=== PATIENT | female | born 1990 | race Caucasian/White ===

== ENCOUNTER 2019-09-22 20:19 | Emergency (ER) | payer SELFPAY ==
[2019-09-22 20:25] VITALS: BP 138/57; PULSE 69; RESP 16; TEMP 37.1; O2SAT 98; BMI 41.1
[2019-09-22 21:13] LABS: Basophils # 0.1 10^3/uL (0.0-0.1); Basophils % 0.4 %; Eosinophils # 0.5 10^3/uL (0.0-0.8); Eosinophils % 4.5 %; Hemoglobin 14.1 g/dL (11.5-15.3); Lymphocytes # 3.1 10^3/uL (0.8-4.8); Lymphocytes % 27.9 %; Mean Corpuscular Hemoglobin 27.3 pg (28.0-34.0); Mean Corpuscular Volume 85.1 fL (81-99); Mean Platelet Volume 10.6 fL (7.4-10.4); Monocytes % 9.2 %; Neutrophils # 6.4 10^3/uL (1.8-7.7); Neutrophils % 57.8 %; Nucleated Red Blood Cells % 0 %; Platelet Count 256 10^3/cmm (130-400); Red Blood Count 5.17 10^6/uL (4.1-5.3); Red Cell Distribution Width 13.7 % (12.1-15.1); White Blood Count 11.1 10^3/uL (4.0-10.0)
[2019-09-22 21:30] LABS: Alanine Aminotransferase 18 U/L (0-33); Albumin Level 4.5 g/dL (3.5-5.2); Alkaline Phosphatase 84 IU/L (35-105); Aspartate Amino Transferase 15 U/L (0-32); Blood Urea Nitrogen 12 mg/dL (6-20); Calcium 9.6 mg/dL (8.5-10.5); Carbon Dioxide 23 mmol/L (22-29); Chloride 103 mmol/L (98-107); Globulin 2.8 g/dL (1.3-4.6); Glucose 93 mg/dL (65-115); Lipase 29 U/L (13-60); Osmolality Calculated 282 mOsm/kg (285-295); Sodium 138 mmol/L (136-145); Total Bilirubin 0.7 mg/dL (0.15-1.2); Total Protein 7.3 g/dL (6.6-8.7)
[2019-09-22 21:41] LABS: Blood Urine 2+ (Negative); Glucose Urine UA Norm (Normal); Ketones Urine Negative (Negative); Protein Urine Neg (Negative); Urine Appearance Cloudy (CLEAR); Urine Color Yellow (Yellow); pH Urine 5 (5-7)
[2019-09-22 21:42] LABS: Add Urine Microscopic? YES; Bilirubin Urine Neg (NEGATIVE); Leukocyte Esterase Urine Trace (Negative); Nitrate Urine Negative (Negative); Urobilinogen Urine 1 mg/dL (Negative)
[2019-09-22 22:05] LABS: Hyaline Casts Urine 0-4
[2019-09-22 22:06] LABS: Bacteria Urine 4+; Mucus Urine 2+; Squamous Epithelial Cell Urine 15-25 (0-5)
[2019-09-22 22:07] LABS: Add Urine Culture? No
--- NOTE | 2019-09-22 22:10 | ED_ITS ---
Entered by Nicky Parr, acting as scribe for Cuco Abbasi DO Sep 22, 2019 20:19 HPI - Nausea/Vomiting/Diarrhea General: Chief complaint: Nausea/Vomiting/Diarrhea Stated complaint: fever/chills/vomiting Time Seen by Provider: 09/22/19 22:04 History of Present Illness: HPI Narrative: 29 yo f came to the er pov for fever, chills, vomiting and lightheadedness. Pt said that she has been lightheaded, vomiting and some blurry vision. started last sunday. Pt said that she has been having some burning with urination. Pt said that the vision issues are her main concern. Pt upon palpation she stated that she had some mild abd pain. MD elicited complaint: nausea, vomiting and abdominal pain (mild) Onset (ago): day(s) (4 days ago) Associated nausea: Yes Associated abdominal pain: Yes (mild) Location of pain: RLQ Pain consistency: intermittent Severity: mild Quality: aching Exacerbating factors: none Relieving factors: none Associated symtoms: Reports cough and nausea; Denies chest pain, dysuria, fatigue or malaise Review of Systems General: Reports: other (negative unless marked ) Const: Denies: fever, chills, body aches, change in appetite, fatigue or malaise ENMT: Denies: throat pain, ear pain, nasal discharge or nasal congestion Card: Denies: chest pain, edema, shortness of breath on exertion or shortness of breath when lying down Resp: Denies: shortness of breath, productive cough or non-productive cough GI: Reports: nausea : Denies: flank pain, difficulty urinating, painful urination, urinary frequency or urinary urgency Skin/Breast: Denies: rash or itching PFSH ED PFSH: Social History Smoking and tobacco status: current every day smoker Physical Exam Const: COMMON NORMALS: average body habitus, oriented x3 and alert GENERAL APPEARANCE: cooperative, comfortable, well kempt and well developed NUTRITIONAL APPEARANCE: obese ORIENTATION/CONSCIOUSNESS: Yes awake, Yes oriented to person and Yes oriented to place HENMT: COMMON NORMALS: normocephalic, head/scalp atraumatic, EAC's normal, TM's normal bilaterally, external nose normal, moist oral mucous membranes and oropharynx normal HEAD & SCALP: normocephalic and atraumatic NOSE: external nose normal EXTERNAL AUDITORY CANAL: EAC's normal TYMPANIC MEMBRANE: TM's normal bilaterally MOUTH: oral and palatal mucosa normal, lip normal and tongue normal THROAT: posterior oropharynx normal and tonsils normal Eye: COMMON NORMALS: PERRL, EOMs intact bilaterally, conjunctivae normal and no scleral icterus CONJUNCTIVA: Yes conjunctivae normal PUPIL: Yes PERRL Neck/C-Spine: COMMON NORMALS: full ROM, no lymphadenopathy, supple, no meningeal signs and thyroid normal THYROID: thyroid normal and asymmetrical Lymph: LYMPHATIC: no lymphadenopathy noted Resp: COMMON NORMALS: normal respiratory effort, no retractions, no use of accessory muscles and clear to auscultation bilaterally AUSCULTATION: clear to auscultation bilaterally Cardio: COMMON NORMALS: regular rate and regular rhythm RATE: regular rate RHYTHM: regular rhythm HEART SOUNDS: no murmurs GI: COMMON NORMALS: normal to inspection, nondistended, normoactive bowel sounds, soft to palpation and no hepatosplenomegaly PALPATION: Yes soft and Yes no hepatosplenomegaly : COMMON NORMALS: Yes no CVA tenderness BLADDER/KIDNEY EXAM: Yes no CVA tenderness Back/Pelvis: COMMON NORMALS: no CVA tenderness LUMBAR SPINE/LOWER BACK: Yes normal to inspection Extremity: COMMON NORMALS: no clubbing, cyanosis or edema, no calf tenderness and no pedal edema Neuro: COMMON NORMALS: oriented x3 SENSORIUM/ORIENTATION: Yes alert, Yes oriented to person and Yes oriented to place MENINGEAL SIGNS: Yes no meningeal signs Psych: APPEARANCE: Yes well kempt Skin: COMMON NORMALS: no rashes or lesions noted and skin turgor normal GENERAL SKIN EXAM: no rashes or lesions noted and turgor normal Course ED course: Patient improved with IV fluids. Ago and discharge home Zofran as needed fluid clear liquid diet for the next 24 hours and advance as tolerated return if his problems Vital Signs: Vital signs: Vital Signs Temperature 98.7 F 09/22/19 20:25 Pulse Rate 84 09/23/19 00:15 Respiratory Rate 20 H 09/23/19 00:15 Blood Pressure 125/71 09/23/19 00:15 Pulse Oximetry 96 09/23/19 00:15 MDM - Nausea/Vomiting/Diarrhea Lab Data: Labs: Lab Results 09/22/19 09/22/19 09/22/19 Range/Units 20:55 20:55 21:02 WBC 11.1 H (4.0-10.0) 10^3/ uL RBC 5.17 (4.1-5.3) 10^6/u L Hgb 14.1 (11.5-15.3) g/dL Hct 44.0 (37.0-47.0) % MCV 85.1 (81-99) fL MCH 27.3 L (28.0-34.0) pg MCHC 32.0 (30.0-36.0) g/dL RDW 13.7 (12.1-15.1) % Plt Count 256 (130-400) 10^3/c mm MPV 10.6 H (7.4-10.4) fL Neut % (Auto) 57.8 % Lymph % (Auto) 27.9 % Caswell % (Auto) 9.2 % Eos % (Auto) 4.5 % Baso % (Auto) 0.4 % Neut # (Auto) 6.4 (1.8-7.7) 10^3/u L Lymph # (Auto) 3.1 (0.8-4.8) 10^3/u L Caswell # (Auto) 1.0 H (0.2-0.9) 10^3/u L Eos # (Auto) 0.5 (0.0-0.8) 10^3/u L Baso # (Auto) 0.1 (0.0-0.1) 10^3/u L Nucleated RBC % (a uto) 0 % Nucleated RBCs # 0.0 /100WBC Sodium 138 (136-145) mmol/L Potassium 4.0 (3.5-5.1) mmol/L Chloride 103 (98-107) mmol/L Carbon Dioxide 23 (22-29) mmol/L Anion Gap 16.0 (5-19) BUN 12 (6-20) mg/dL Creatinine 0.6 (0.5-0.9) mg/dL GFR Calculation 119.0 (90-130) mL/min Glucose 93 (65-115) mg/dL POC Glucose (70-110) mg/dL Calculated Osmolal ity 282 L (285-295) mOsm/k g Calcium 9.6 (8.5-10.5) mg/dL Total Bilirubin 0.7 (0.15-1.2) mg/dL AST 15 (0-32) U/L ALT 18 (0-33) U/L Alkaline Phosphata se 84 (35-105) IU/L Total Protein 7.3 (6.6-8.7) g/dL Albumin 4.5 (3.5-5.2) g/dL Globulin 2.8 (1.3-4.6) g/dL Lipase 29 (13-60) U/L Urine Color Yellow (Yellow) Urine Appearance Cloudy (CLEAR) Urine pH 5 (5-7) Ur Specific Gravit y 1.030 (1.005-1.030) Urine Protein Neg (Negative) Urine Glucose (UA) Norm (Normal) Urine Ketones Negative (Negative) Urine Blood 2+ H (Negative) Urine Nitrate Negative (Negative) Urine Bilirubin Neg (NEGATIVE) Urine Urobilinogen 1 H (Negative) mg/dL Ur Leukocyte Janice ase Trace H (Negative) Urine RBC 5-10 H (0-2) /hpf Urine WBC 5-10 H (0-5) /hpf Ur Squamous Epith Cells 15-25 H (0-5) Calcium Oxalate Cr ystal 10-15 H /hpf Urine Bacteria 4+ H (NONE) Hyaline Casts 0-4 H Urine Mucus 2+ 03/16/20 Range/Units 22:56 WBC (4.0-10.0) 10^3/ uL RBC (4.1-5.3) 10^6/u L Hgb (11.5-15.3) g/dL Hct (37.0-47.0) % MCV (81-99) fL MCH (28.0-34.0) pg MCHC (30.0-36.0) g/dL RDW (12.1-15.1) % Plt Count (130-400) 10^3/c mm MPV (7.4-10.4) fL Neut % (Auto) % Lymph % (Auto) % Caswell % (Auto) % Eos % (Auto) % Baso % (Auto) % Neut # (Auto) (1.8-7.7) 10^3/u L Lymph # (Auto) (0.8-4.8) 10^3/u L Caswell # (Auto) (0.2-0.9) 10^3/u L Eos # (Auto) (0.0-0.8) 10^3/u L Baso # (Auto) (0.0-0.1) 10^3/u L Nucleated RBC % (a uto) % Nucleated RBCs # /100WBC Sodium (136-145) mmol/L Potassium (3.5-5.1) mmol/L Chloride (98-107) mmol/L Carbon Dioxide (22-29) mmol/L Anion Gap (5-19) BUN (6-20) mg/dL Creatinine (0.5-0.9) mg/dL GFR Calculation (90-130) mL/min Glucose (65-115) mg/dL POC Glucose 78 (70-110) mg/dL Calculated Osmolal ity (285-295) mOsm/k g Calcium (8.5-10.5) mg/dL Total Bilirubin (0.15-1.2) mg/dL AST (0-32) U/L ALT (0-33) U/L Alkaline Phosphata se (35-105) IU/L Total Protein (6.6-8.7) g/dL Albumin (3.5-5.2) g/dL Globulin (1.3-4.6) g/dL Lipase (13-60) U/L Urine Color (Yellow) Urine Appearance (CLEAR) Urine pH (5-7) Ur Specific Gravit y (1.005-1.030) Urine Protein (Negative) Urine Glucose (UA) (Normal) Urine Ketones (Negative) Urine Blood (Negative) Urine Nitrate (Negative) Urine Bilirubin (NEGATIVE) Urine Urobilinogen (Negative) mg/dL Ur Leukocyte Janice ase (Negative) Urine RBC (0-2) /hpf Urine WBC (0-5) /hpf Ur Squamous Epith Cells (0-5) Calcium Oxalate Cr ystal /hpf Urine Bacteria (NONE) Hyaline Casts Urine Mucus Discharge Plan Discharge Patient Disposition: Home, Self-Care Clinical Impression: Gastroenteritis Condition: Stable Prescriptions: New Zofran 4 mg tablet 4 mg PO Q6H PRN (Reason: nausea and vomiting) Qty: 20 RF: 0 Discharge Orders: Discharge Order (Routine); Ordered 09/22/19 Ordered By: Cuco Abbasi Referrals: Kimmie Tanner, OUTER DIAMETER TECHNICIAN-C [Primary Care Provider] - Milton Mcintyre MD [Family Provider] - Discharge Diet: Clear Liquid Discharge Activity: Increase activity as tolerated Patient Instructions: Clear Liquid Diet (ED), Gastroenteritis (ED), Acute Nausea and Vomiting (ED) Activity Restrictions/Additional Instructions: Follow-up with your primary care doctor if not resolved in 3 to 4 days. Return to the emergency room if worsens. Discharge Date/Time: 09/23/19 00:15 Coding Level of Care Code ED Leaf Sorter for Chg Fwd Exam Comprehensive The documentation recorded by the Keshav biswas Stephanie Lyn, accurately reflects the service I personally performed and the decisions made by , Cuco Abbasi, Sep 22, 2019 20:19
[2019-09-22] MEDS: ondansetron 2 mg/ML SDV 2 mL 4 MG IVP (22:44)
[2019-09-22] MEDS: sodium chloride 0.9% 1,000 ML 999 ML IV (22:46)
[2019-09-22 23:03] LABS: Glucose Point of Care 78 mg/dL (70-110)
[2019-09-23 00:15] VITALS: BP 125/71; PULSE 84; RESP 20; O2SAT 96
== END 2019-09-23 00:15 | disposition home or self-care (01) ==
PROVIDERS: Emergency Provider Family Medicine; Family Provider Family Medicine; PCP Nurse Practitioner
DX: K52.9 Noninfective gastroenteritis and colitis, unspecified (principal); E66.9 Obesity, unspecified; Z68.41 Body mass index [BMI] 40.0-44.9, adult; F17.200 Nicotine dependence, unspecified, uncomplicated
CPT/HCPCS: 12345; 36415; 36416; 80053; 81001; 82962; 83690; 85025; 96361; 96374; 96375; 99282; 99283; A9270; J2405; J7030

== ENCOUNTER 2019-10-26 10:41 | Emergency (ER) | payer SELFPAY ==
[2019-10-26 10:45] VITALS: BMI 44.4
[2019-10-26 10:49] VITALS: BP 128/81; PULSE 64; RESP 16; TEMP 36.7; O2SAT 97
--- NOTE | 2019-10-26 10:49 | W.ED.PREGNAN ---
HPI - General: Chief complaint: Nausea/Vomiting/Diarrhea Stated complaint: 9 WKS PREG, VOMITING Time Seen by Provider: 10/26/19 10:45 History of Present Illness: HPI Narrative: Patient complains of nausea and vomiting related to her current . Patient believes she is approximately 9 weeks . She is 2 para 1. MD Complaint: other (Nausea and vomiting) Onset (ago): day(s) Pain Consistency: constant Relieving factors: none Exacerbating factors: eating Vaginal discharge: none Vaginal bleeding: none Date of Last Menstrual Period: 08/13/19 OB History - Current : no complications OB History - Previous Pregnancies: no complications care: none Associated symptoms: Reports nausea and vomiting Review of Systems General: Reports: 10 or more systems reviewed and unremarkable except in HPI and below GI: Reports: nausea and vomiting PFSH ED PFSH: Social History Smoking and tobacco status: current every day smoker Female Reproductive History: Date of last menstrual period: 08/13/19 Physical Exam Const: COMMON NORMALS: no apparent distress and oriented x3 HENMT: COMMON NORMALS: normocephalic HEAD & SCALP: normocephalic Neck/C-Spine: COMMON NORMALS: no JVD Resp: COMMON NORMALS: normal respiratory effort and clear to auscultation bilaterally AUSCULTATION: clear to auscultation bilaterally Cardio: COMMON NORMALS: no JVD, regular rate and regular rhythm RATE: regular rate RHYTHM: regular rhythm GI: COMMON NORMALS: normal to inspection, nondistended, normoactive bowel sounds Neuro: COMMON NORMALS: oriented x3 Skin: COMMON NORMALS: no rashes or lesions noted, no wounds, skin turgor normal, no jaundice and no petechiae GENERAL SKIN EXAM: no rashes or lesions noted and turgor normal Course Vital Signs: Vital signs: Vital Signs Temperature 98.0 F 10/26/19 10:49 Pulse Rate 64 10/26/19 10:49 Respiratory Rate 16 10/26/19 10:49 Blood Pressure 128/81 10/26/19 10:49 Pulse Oximetry 97 10/26/19 10:49 Discharge Plan Discharge Prescriptions: No Action Zofran 4 mg tablet 4 mg PO Q6H PRN (Reason: nausea and vomiting) Qty: 20 RF: 0 Coding Level of Care Code ED Marketing Communications Manager for Mo Mota
--- NOTE | 2019-10-26 10:50 | USR_ITS ---
PROCEDURE INFORMATION: Exam: US First Trimester, Transabdominal and US , Transvaginal Exam date and time: 10/26/2019 12:19 PM Age: 29 years old Clinical indication: Lmp or gestational age (in weeks): Unknown; Other: Nausea and vomiting; ; Additional info: Nausea/vomiting TECHNIQUE: Imaging protocol: Real-time transabdominal obstetrical ultrasound of the maternal pelvis and a first trimester , less than 14 weeks 0 days, with image documentation. Transvaginal imaging was used for better evaluation of the fetus and adnexa. COMPARISON: [facility] OB > 14 weeks 03/09/2016 8:18 AM FINDINGS: GESTATION: Gestation: Intrauterine gestational sac identified, better assessed by transvaginal imaging. 4.1 mm yolk sac by transvaginal imaging. Embryo identified by transvaginal imaging. Heart rate: Possible embryonic cardiac activity, rate not assessed. Placenta: Unremarkable. No subchorionic bleed. Amniotic fluid: Amniotic is normal for gestational age. BIOMETRY: Estimated gestational age: [place]-rump length 6 weeks 2 days. [place]-Rump length: [place]-rump length 5.6 mm, 6 weeks 2 days. Estimated due date: LULU 06/16/2020. MATERNAL: Uterus: Uterus 9.8 x 5.4 x 6.8 cm transabdominally. Cervix: Unremarkable. Right adnexa: Right ovary 1.8 x 1.8 x 2.0 cm transabdominally. 9.4 mm right ovarian corpus luteum. Right ovary not identified by transvaginal imaging. Left adnexa: Left ovary 2.3 x 2.5 x 2.3 cm transabdominally, 2.1 x 2.0 x 2.3 cm transvaginally. Normal ovarian arterial and venous blood flow. Intraperitoneal: No intraperitoneal free fluid. US/US OB <=14 wk fetus w transvag IMPRESSION: Single intrauterine , questionable cardiac activity. Follow-up in 1 week recommended to assess viability.
[2019-10-26] MEDS: sodium chloride 0.9% 1,000 ML 999 ML IV (11:03)
[2019-10-26 11:10] LABS: Basophils % 0.3 %; Eosinophils # 0.1 10^3/uL (0.0-0.8); Eosinophils % 0.9 %; Hematocrit 45.8 % (37.0-47.0); Hemoglobin 14.7 g/dL (11.5-15.3); Lymphocytes # 1.9 10^3/uL (0.8-4.8); Lymphocytes % 17.2 %; Mean Corpuscular HGB Conc 32.1 g/dL (30.0-36.0); Mean Corpuscular Hemoglobin 26.8 pg (28.0-34.0); Mean Corpuscular Volume 83.4 fL (81-99); Mean Platelet Volume 10.6 fL (7.4-10.4); Monocytes # 0.6 10^3/uL (0.2-0.9); Monocytes % 5.7 %; Neutrophils # 8.1 10^3/uL (1.8-7.7); Neutrophils % 75.5 %; Nucleated Red Blood Cells % 0 %; Platelet Count 247 10^3/cmm (130-400); Red Blood Count 5.49 10^6/uL (4.1-5.3); Red Cell Distribution Width 13.9 % (12.1-15.1); White Blood Count 10.8 10^3/uL (4.0-10.0)
--- NOTE | 2019-10-26 11:20 | PC.NURSE ---
Pt up to BR with clean catch kit with instructions.
[2019-10-26 11:22] LABS: Lactate (Lactic Acid level) 0.9 mmol/L (0.5-2.2)
[2019-10-26 11:23] LABS: Alanine Aminotransferase 31 U/L (0-33); Albumin Level 4.5 g/dL (3.5-5.2); Alkaline Phosphatase 74 IU/L (35-105); Anion Gap 16.9 (5-19); Aspartate Amino Transferase 17 U/L (0-32); Blood Urea Nitrogen 7 mg/dL (6-20); Calcium 9.7 mg/dL (8.5-10.5); Carbon Dioxide 21 mmol/L (22-29); Chloride 100 mmol/L (98-107); Globulin 3.2 g/dL (1.3-4.6); Glomerular Filtration Rate 146.9 mL/min (90-130); Glucose 96 mg/dL (65-115); Osmolality Calculated 274 mOsm/kg (285-295); Potassium 3.9 mmol/L (3.5-5.1); Sodium 134 mmol/L (136-145); Total Bilirubin 0.7 mg/dL (0.15-1.2); Total Protein 7.7 g/dL (6.6-8.7)
--- NOTE | 2019-10-26 11:44 | PC.NURSE ---
US tech at bedside
[2019-10-26 12:19] LABS: Blood Urine 2+ (Negative); Glucose Urine UA Norm (Normal); Ketones Urine 3+ (Negative); Protein Urine Trace (Negative); Urine Appearance Hazy (CLEAR); pH Urine 5 (5-7)
[2019-10-26 12:20] LABS: Add Urine Microscopic? YES; Amorphous Sediment Urine 1+; Bacteria Urine 2+; Bilirubin Urine 1+ (NEGATIVE); Leukocyte Esterase Urine 2+ (Negative); Nitrate Urine Negative (Negative); RBC Urine RARE /hpf (0-2); Urine Color Dark Yellow (Yellow); Urobilinogen Urine 4 mg/dL (Negative); WBC Urine 15-25 /hpf (0-5)
[2019-10-26 12:21] LABS: Add Urine Culture? No
== END 2019-10-26 12:24 | disposition home or self-care (01) ==
PROVIDERS: Emergency Provider Family Medicine; Family Provider Family Medicine; PCP Nurse Practitioner
DX: O21.9 Vomiting of pregnancy, unspecified (principal); Z3A.01 Less than 8 weeks gestation of pregnancy
CPT/HCPCS: 12345; 36415; 76801; 76817; 80053; 81001; 83605; 84702; 85025; 86900; 96360; 99283; J7030

== ENCOUNTER 2019-11-03 18:37 | Emergency (ER) | payer MEDICAID, SELFPAY ==
[2019-11-03 18:42] VITALS: BP 117/96; PULSE 88; RESP 18; TEMP 36.9; O2SAT 99; BMI 46.4
--- NOTE | 2019-11-03 18:58 | ED_ITS ---
HPI - Nausea/Vomiting/Diarrhea General: Chief complaint: Nausea/Vomiting/Diarrhea Stated complaint: n/v 8 weeks preg Time Seen by Provider: 11/03/19 18:44 History of Present Illness: HPI Narrative: Patient says she is 8-9 weeks and she has had nausea and vomiting for the last few weeks. Has seen her OB provider who placed her on Phenergan and it does not seem to be working and she was seen in the ER the other day and placed on Zofran received IV fluids she said does not work either denies any other problems MD elicited complaint: nausea and vomiting Pertinent past history: other () Onset (ago): week(s) Description of vomiting: food contents Associated nausea: Yes Associated abdominal pain: No Exacerbating factors: eating Relieving factors: none Associated symtoms: Reports no associated symptoms and nausea; Denies anxiety, change in vision, chest pain or headache(s) Review of Systems Const: Denies: fever, chills or body aches Eyes: Denies: change in vision or blurry vision ENMT: Denies: throat pain or nasal congestion Card: Denies: chest pain or shortness of breath on exertion Resp: Denies: shortness of breath, productive cough or non-productive cough GI: Reports: nausea and vomiting Musc: Denies: extremity pain Skin/Breast: Denies: rash Neuro: Denies: headache Psych: Denies: anxiety or depression Adrian/Lymph: Denies: easy bruising PFSH ED PFSH: Social History Smoking and tobacco status: never smoked Female Reproductive History: Date of last menstrual period: 08/13/19 Physical Exam Const: COMMON NORMALS: no apparent distress, average body habitus and oriented x3 HENMT: COMMON NORMALS: normocephalic HEAD & SCALP: normal to inspection and normocephalic FACE & SINUS: normal facial exam Eye: COMMON NORMALS: conjunctivae normal GENERAL EYE: normal appearance of both eyes CONJUNCTIVA: Yes conjunctivae normal Neck/C-Spine: COMMON NORMALS: no JVD Chest: COMMONS NORMALS: inspection of chest normal Resp: COMMON NORMALS: normal respiratory effort and clear to auscultation bilaterally AUSCULTATION: clear to auscultation bilaterally Cardio: COMMON NORMALS: no JVD, regular rate and regular rhythm RATE: regular rate RHYTHM: regular rhythm GI: COMMON NORMALS: normal to inspection, nondistended, normoactive bowel sounds Extremity: COMMON NORMALS: normal to inspection and full ROM Neuro: COMMON NORMALS: oriented x3 Course Vital Signs: Vital signs: Vital Signs Temperature 98.4 F 11/03/19 18:42 Pulse Rate 88 11/03/19 18:42 Respiratory Rate 18 11/03/19 18:42 Blood Pressure 117/96 11/03/19 18:42 Pulse Oximetry 99 11/03/19 18:42 Discharge Plan Discharge Prescriptions: No Action Dramamine 50 mg Tablet 50 mg PO Q8H RF: 0 promethazine 25 mg tablet 12.5 mg PO Q6H PRN (Reason: nausea and vomiting) Qty: 14 RF: 0 Coding Level of Care Code ED Bench Lathe Operator for Mo Mtoa
[2019-11-03] MEDS: sodium chloride 0.9% 1,000 ML 999 ML IV (19:21)
[2019-11-03] MEDS: metoclopramide 5 mg/mL SDV 2 mL 10 MG IVP (19:24)
[2019-11-03] MEDS: diphenhydrAMINE 50 mg/mL SDV 1mL 25 MG IVP (19:26)
[2019-11-03 19:36] LABS: Basophils # 0.1 10^3/uL (0.0-0.1); Basophils % 0.4 %; Eosinophils # 0.1 10^3/uL (0.0-0.8); Eosinophils % 0.7 %; Hematocrit 44.1 % (37.0-47.0); Lymphocytes # 2.1 10^3/uL (0.8-4.8); Lymphocytes % 16.8 %; Mean Corpuscular HGB Conc 31.7 g/dL (30.0-36.0); Mean Corpuscular Hemoglobin 26.6 pg (28.0-34.0); Mean Corpuscular Volume 83.8 fL (81-99); Mean Platelet Volume 11.3 fL (7.4-10.4); Monocytes # 0.8 10^3/uL (0.2-0.9); Monocytes % 6.3 %; Neutrophils # 9.2 10^3/uL (1.8-7.7); Neutrophils % 75.5 %; Nucleated Red Blood Cells % 0 %; Platelet Count 228 10^3/cmm (130-400); Red Blood Count 5.26 10^6/uL (4.1-5.3); Red Cell Distribution Width 13.7 % (12.1-15.1); White Blood Count 12.2 10^3/uL (4.0-10.0)
[2019-11-03 19:53] LABS: Blood Urea Nitrogen 7 mg/dL (6-20); Calcium 9.9 mg/dL (8.5-10.5); Carbon Dioxide 23 mmol/L (22-29); Chloride 102 mmol/L (98-107); Creatinine Clr Calc Pharmacy 167.8006; Glucose 90 mg/dL (65-115); Osmolality Calculated 277 mOsm/kg (285-295); Sodium 136 mmol/L (136-145)
[2019-11-03 20:23] VITALS: BP 121/74; PULSE 66; RESP 17; O2SAT 99
[2019-11-03 20:43] LABS: Bilirubin Urine 1+ (NEGATIVE); Blood Urine Trace (Negative); Glucose Urine UA Norm (Normal); Ketones Urine Negative (Negative); Leukocyte Esterase Urine 2+ (Negative); Nitrate Urine Negative (Negative); Protein Urine Trace (Negative); Specific Gravity, Urine 1.025 (1.005-1.030); Urine Appearance Hazy (CLEAR); Urine Color Amber (Yellow); Urobilinogen Urine 4 mg/dL (Negative); pH Urine 5 (5-7)
[2019-11-03 20:44] LABS: Add Urine Culture? Yes; Add Urine Microscopic? YES; Bacteria Urine 4+; Squamous Epithelial Cell Urine 55-80 (0-5); WBC Urine 25-40 /hpf (0-5)
== END 2019-11-03 20:23 | disposition home or self-care (01) ==
PROVIDERS: Emergency Provider Nurse Practitioner Family; Family Provider Family Medicine; PCP Nurse Practitioner
DX: O36.5910 Maternal care for other known or suspected poor fetal growth, first trimester, not applicable or unspecified (principal); R11.2 Nausea with vomiting, unspecified; Z3A.08 8 weeks gestation of pregnancy
CPT/HCPCS: 12345; 80048; 81001; 85025; 87086; 96360; 96361; 96374; 96375; 99283; 99284; J1200; J2765; J7030

== ENCOUNTER 2019-12-20 10:28 | Emergency (ER) | payer MEDICAID, SELFPAY ==
[2019-12-20 10:33] VITALS: BP 144/65; PULSE 77; RESP 18; TEMP 36.8; O2SAT 97; BMI 41.9
--- NOTE | 2019-12-20 10:43 | W.ED.ABDPA2 ---
HPI - Abdominal Pain General: Chief Complaint: Abdominal Pain Stated Complaint: R LEG/LOW ABD PAIN Time Seen by Provider: 12/20/19 10:33 History of Present Illness: HPI narrative: 29-year-old female comes in complaining of the right lower quadrant pain she is 14 weeks gestation she is G3, P1 SAB [address] Mcintyre. Pain began around 3 AM this morning radiates from her right side down into the suprapubic and groin area. She vomited once last night. Early in she had a lot of hyperemesis up to about 8 weeks use of metoclopramide for that it seems to have resolved. She denies any fever no other sick contacts at home she denies dysuria urgency or frequency no vaginal bleeding or discharge. MD elicited complaint: abdominal pain Pertinent past history: none Onset (ago): hour(s) Pain Consistency: intermittent Location: RLQ Severity: moderate Quality: cramping Radiation: suprapubic Exacerbating factors: eating and movement Relieving factors: rest (Remaining very still) Associated Symptoms: Reports anorexia, GI cramping, nausea and poor appetite; Denies coffee ground emesis, diarrhea, dyspepsia, dysuria, fever(s), hematochezia, hematuria, hematemesis, loose stools, melena and vomiting Related Data: Date of Last Menstrual Period: 08/13/19 Review of Systems Const: Denies: fever(s) ENMT: Denies: throat pain, ear or mastoid pain, nasal discharge or nasal congestion Card: Denies: chest pain, edema, dyspnea on exertion or orthopnea Resp: Denies: dyspnea, productive cough or non-productive cough GI: Reports: nausea and GI cramping; Denies: vomiting, hematemesis, coffee ground emesis, diarrhea, hematochezia or melena : Denies: dysuria or hematuria Skin/Breast: Denies: rash or pruritus PFSH ED PFSH: Medical History Endometriosis Surgical History H/O hand surgery Hx of cholecystectomy Social History Smoking and tobacco status: never smoked Female Reproductive History: Date of last menstrual period: 08/13/19 Physical Exam Const: COMMON NORMALS: no acute distress GENERAL APPEARANCE: cooperative and comfortable ORIENTATION/CONSCIOUSNESS: Yes awake, Yes oriented to person, Yes oriented to place and Yes oriented to time HENMT: COMMON NORMALS: normocephalic, atraumatic, hearing grossly normal bilaterally, external ears normal, EAC's normal, TM's normal bilaterally, Normal nasal mucous membranes and turbinates present, moist oral mucous membranes and oropharynx normal HEAD & SCALP: normocephalic and atraumatic NOSE: Normal nasal mucous membranes and turbinates present EXTERNAL EAR: Yes external ears normal EXTERNAL AUDITORY CANAL: EAC's normal TYMPANIC MEMBRANE: TM's normal bilaterally Eye: COMMON NORMALS: Equal, round and reactive pupils present, EOMs intact bilaterally, conjunctivae normal and no scleral icterus CONJUNCTIVA: Yes conjunctivae normal PUPIL: Yes Equal, round and reactive pupils present Neck/C-Spine: COMMON NORMALS: full ROM, no lymphadenopathy and supple Lymph: LYMPHATIC: no lymphadenopathy noted and no lymphedema noted Resp: COMMON NORMALS: normal respiratory effort, No retractions, No use of accessory muscles and clear to auscultation bilaterally AUSCULTATION: clear to auscultation bilaterally Cardio: COMMON NORMALS: regular rate, regular rhythm and No murmurs present (Cardio) RATE: regular rate RHYTHM: regular rhythm GI: COMMON NORMALS: Soft to palpation and No hepatosplenomegaly present AUSCULTATION: Yes normoactive bowel sounds PALPATION: Yes Soft to palpation, Yes Tenderness to palpation present (GI) (Mild rebound, positive Rovsing's) Details: RLQ, No Guarding due to palpation present (GI) and Yes No hepatosplenomegaly present Extremity: COMMON NORMALS: normal to inspection, capillary refill normal, no clubbing, cyanosis or edema, no calf tenderness and no pedal edema Neuro: SENSORIUM/ORIENTATION: Yes oriented to person, Yes oriented to place and Yes oriented to time Skin: COMMON NORMALS: no rashes or lesions noted GENERAL SKIN EXAM: no rashes or lesions noted Course Vital Signs: Vital signs: Vital Signs Temperature 98.2 F 12/20/19 10:33 Pulse Rate 96 12/20/19 15:48 Respiratory Rate 16 12/20/19 15:48 Blood Pressure 145/85 12/20/19 15:48 Pulse Oximetry 97 12/20/19 15:48 MDM - Abdominal Pain MDM Narrative: Medical decision making narrative: After discussion with the patient as well as her attending we did go ahead and do a CT of the abdomen to rule out concern for appendicitis. At the time of the exam she was exquisitely tender at McBurney's point with a very slightly elevated white count. Patient was quite concerned and he could not confidently rule it out without the CT we discussed the risks and benefits she decided to go ahead. CT ultimately did not show an acute appendicitis and she was discharged home follow-up with primary care doctor return if his problems. Lab Data: Labs: Lab Results 12/20/19 12/20/19 12/20/19 Range/Units 10:50 10:50 10:50 WBC 10.8 H (4.0-10.0) 10^3/ uL RBC 4.64 (4.1-5.3) 10^6/u L Hgb 12.3 (11.5-15.3) g/dL Hct 38.5 (37.0-47.0) % MCV 83.0 (81-99) fL MCH 26.5 L (28.0-34.0) pg MCHC 31.9 (30.0-36.0) g/dL RDW 13.9 (12.1-15.1) % Plt Count 210 (130-400) 10^3/c mm MPV 10.9 H (7.4-10.4) fL Neut % (Auto) 77.0 % Lymph % (Auto) 15.1 % [place] % (Auto) 6.2 % Eos % (Auto) 1.1 % Baso % (Auto) 0.3 % Neut # (Auto) 8.3 H (1.8-7.7) 10^3/u L Lymph # (Auto) 1.6 (0.8-4.8) 10^3/u L [place] # (Auto) 0.7 (0.2-0.9) 10^3/u L Eos # (Auto) 0.1 (0.0-0.8) 10^3/u L Baso # (Auto) 0.0 (0.0-0.1) 10^3/u L Nucleated RBC % (a uto) 0 % Nucleated RBCs # 0.0 /100WBC Sodium 134 L (136-145) mmol/L Potassium 3.7 (3.5-5.1) mmol/L Chloride 104 (98-107) mmol/L Carbon Dioxide 19 L (22-29) mmol/L Anion Gap 14.7 (5-19) BUN 5 L (6-20) mg/dL Creatinine 0.4 L (0.5-0.9) mg/dL GFR Calculation 190.1 H (90-130) mL/min Glucose 107 (65-115) mg/dL Calculated Osmolal ity 274 L (285-295) mOsm/k g Lactate 1.7 (0.5-2.2) mmol/L Calcium 9.3 (8.5-10.5) mg/dL Total Bilirubin 0.2 (0.15-1.2) mg/dL AST 12 (0-32) U/L ALT 10 (0-33) U/L Alkaline Phosphata se 69 (35-105) IU/L Total Protein 6.2 L (6.6-8.7) g/dL Albumin 3.7 (3.5-5.2) g/dL Globulin 2.5 (1.3-4.6) g/dL Lipase 22 (13-60) U/L Ser , Dipti i-Qnt mIU/mL Urine Color (Yellow) Urine Appearance (CLEAR) Urine pH (5-7) Ur Specific Gravit y (1.005-1.030) Urine Protein (Negative) Urine Glucose (UA) (Normal) Urine Ketones (Negative) Urine Blood (Negative) Urine Nitrate (Negative) Urine Bilirubin (NEGATIVE) Urine Urobilinogen (Negative) mg/dL Ur Leukocyte Janice ase (Negative) 12/20/19 12/20/19 Range/Units 10:50 11:15 WBC (4.0-10.0) 10^3/ uL RBC (4.1-5.3) 10^6/u L Hgb (11.5-15.3) g/dL Hct (37.0-47.0) % MCV (81-99) fL MCH (28.0-34.0) pg MCHC (30.0-36.0) g/dL RDW (12.1-15.1) % Plt Count (130-400) 10^3/c mm MPV (7.4-10.4) fL Neut % (Auto) % Lymph % (Auto) % [place] % (Auto) % Eos % (Auto) % Baso % (Auto) % Neut # (Auto) (1.8-7.7) 10^3/u L Lymph # (Auto) (0.8-4.8) 10^3/u L [place] # (Auto) (0.2-0.9) 10^3/u L Eos # (Auto) (0.0-0.8) 10^3/u L Baso # (Auto) (0.0-0.1) 10^3/u L Nucleated RBC % (a uto) % Nucleated RBCs # /100WBC Sodium (136-145) mmol/L Potassium (3.5-5.1) mmol/L Chloride (98-107) mmol/L Carbon Dioxide (22-29) mmol/L Anion Gap (5-19) BUN (6-20) mg/dL Creatinine (0.5-0.9) mg/dL GFR Calculation (90-130) mL/min Glucose (65-115) mg/dL Calculated Osmolal ity (285-295) mOsm/k g Lactate (0.5-2.2) mmol/L Calcium (8.5-10.5) mg/dL Total Bilirubin (0.15-1.2) mg/dL AST (0-32) U/L ALT (0-33) U/L Alkaline Phosphata se (35-105) IU/L Total Protein (6.6-8.7) g/dL Albumin (3.5-5.2) g/dL Globulin (1.3-4.6) g/dL Lipase (13-60) U/L Ser , Dipti i-Qnt 24878.00 mIU/mL Urine Color Straw (Yellow) Urine Appearance Clear (CLEAR) Urine pH 6.5 (5-7) Ur Specific Gravit y 1.010 (1.005-1.030) Urine Protein Neg (Negative) Urine Glucose (UA) Norm (Normal) Urine Ketones Negative (Negative) Urine Blood Neg (Negative) Urine Nitrate Negative (Negative) Urine Bilirubin Neg (NEGATIVE) Urine Urobilinogen Norm (Negative) mg/dL Ur Leukocyte Janice ase Negative (Negative) Discharge Plan Discharge Patient Disposition: Home, Self-Care Clinical Impression: Abdominal pain, Condition: Stable Prescriptions: No Action dimenhydrinate [Dramamine] 50 mg Tablet 50 mg PO Q8H RF: 0 Discharge Orders: Discharge Order (Routine); Ordered 12/20/19 Ordered By: Cuco Abbasi Referrals: Miltno Mcintyre MD [Family Provider] - Discharge Diet: Clear Liquid Discharge Activity: Increase activity as tolerated Patient Instructions: Abdominal Pain (ED) Activity Restrictions/Additional Instructions: Follow-up with your primary care doctor next week. If you have increasing discomfort or pain return to emergency room for reevaluation. Discharge Date/Time: 12/20/19 15:48 Coding Level of Care Code ED Food Operations Manager for Chg Fwd Exam Comprehensive
[2019-12-20 10:58] LABS: Basophils % 0.3 %; Eosinophils # 0.1 10^3/uL (0.0-0.8); Eosinophils % 1.1 %; Hematocrit 38.5 % (37.0-47.0); Hemoglobin 12.3 g/dL (11.5-15.3); Lymphocytes # 1.6 10^3/uL (0.8-4.8); Lymphocytes % 15.1 %; Mean Corpuscular HGB Conc 31.9 g/dL (30.0-36.0); Mean Corpuscular Hemoglobin 26.5 pg (28.0-34.0); Mean Platelet Volume 10.9 fL (7.4-10.4); Monocytes # 0.7 10^3/uL (0.2-0.9); Monocytes % 6.2 %; Neutrophils # 8.3 10^3/uL (1.8-7.7); Nucleated Red Blood Cells % 0 %; Platelet Count 210 10^3/cmm (130-400); Red Blood Count 4.64 10^6/uL (4.1-5.3); Red Cell Distribution Width 13.9 % (12.1-15.1); White Blood Count 10.8 10^3/uL (4.0-10.0)
--- NOTE | 2019-12-20 11:13 | USR_ITS ---
PROCEDURE INFORMATION: Exam: US First Trimester, Transabdominal and US Duplex Artery or Vein, Ovaries, Limited Exam date and time: 12/20/2019 12:04 PM Age: 29 years old Clinical indication: Pain; Other: Right lower quadrant; Additional info: Rlq pain TECHNIQUE: Imaging protocol: Real-time transabdominal obstetrical ultrasound of the maternal pelvis and a first trimester , less than 14 weeks 0 days, with image documentation. Real-time duplex ultrasound scan of the arterial or venous flow of the ovaries with B-mode, color Doppler flow and spectral waveform analysis, limited Duplex. COMPARISON: No relevant prior studies available. FINDINGS: The uterus measures 18 x 8.7 x 10.8 cm. There is a single intrauterine gestation. The embryonic heart rate was measured at 147 beats per minute. The mean sac diameter and crown-rump length were not measured on this examination. Both maternal ovaries are identified and demonstrate blood flow on Doppler interrogation. The right ovary measures 2.7 x 2.4 x 1.8 cm and the left ovary measures 2.8 x 2.2 x 2.5 cm. There is no adnexal mass. The appendix is not identified with certainty. No free fluid is seen in the pelvis. US/US pelvic complete* [id number] IMPRESSION: 1. Single viable intrauterine gestation, as above. Recommend continued clinical and ultrasound surveillance, as clinically indicated. 2. Appendix not identified with certainty. No free fluid.
[2019-12-20 11:16] LABS: Lactate (Lactic Acid level) 1.7 mmol/L (0.5-2.2)
[2019-12-20 11:17] LABS: Alanine Aminotransferase 10 U/L (0-33); Albumin Level 3.7 g/dL (3.5-5.2); Alkaline Phosphatase 69 IU/L (35-105); Anion Gap 14.7 (5-19); Aspartate Amino Transferase 12 U/L (0-32); Blood Urea Nitrogen 5 mg/dL (6-20); Calcium 9.3 mg/dL (8.5-10.5); Carbon Dioxide 19 mmol/L (22-29); Chloride 104 mmol/L (98-107); Globulin 2.5 g/dL (1.3-4.6); Glomerular Filtration Rate 190.1 mL/min (90-130); Glucose 107 mg/dL (65-115); Lipase 22 U/L (13-60); Osmolality Calculated 274 mOsm/kg (285-295); Potassium 3.7 mmol/L (3.5-5.1); Sodium 134 mmol/L (136-145); Total Bilirubin 0.2 mg/dL (0.15-1.2); Total Protein 6.2 g/dL (6.6-8.7)
[2019-12-20] MEDS: ondansetron 2 mg/ML SDV 2 mL 4 MG IVP (11:33)
[2019-12-20 11:41] LABS: Add Urine Microscopic? NO
[2019-12-20 11:43] LABS: Bilirubin Urine Neg (NEGATIVE); Blood Urine Neg (Negative); Glucose Urine UA Norm (Normal); Ketones Urine Negative (Negative); Leukocyte Esterase Urine Negative (Negative); Nitrate Urine Negative (Negative); Protein Urine Neg (Negative); Urine Appearance Clear (CLEAR); Urine Color Straw (Yellow); Urobilinogen Urine Norm (Negative); pH Urine 6.5 (5-7)
--- NOTE | 2019-12-20 13:19 | CTR_ITS ---
PROCEDURE INFORMATION: Exam: CT Abdomen And Pelvis With Contrast Exam date and time: 12/20/2019 2:19 PM Age: 29 years old Clinical indication: Abdominal pain; Localized; Right lower quadrant (rlq); Prior surgery; Surgery date: 6+ months; Surgery type: Gb; Patient HX: PT is 14 weeks C/O sudden onset rlq pain into R leg; Additional info: Abd pain TECHNIQUE: Imaging protocol: Computed tomography of the abdomen and pelvis with intravenous contrast. Axial, coronal and sagittal reformatted images were created and reviewed. Radiation optimization: All CT scans at this facility use at least one of these dose optimization techniques: automated exposure control; mA and/or kV adjustment per patient size (includes targeted exams where dose is matched to clinical indication); or iterative reconstruction. Contrast material: OMNI 300; Contrast volume: 95 ml; Contrast route: 20G; COMPARISON: US pelvic complete* [id number] 12/20/2019 11:41 AM RADIATION DOSE METRICS: Total DLP: 966.76 mGy-cm FINDINGS: Liver: Unremarkable. Gallbladder and bile ducts: Status post cholecystectomy. Mild central biliary ductal dilatation, likely postsurgical. Pancreas: Unremarkable. Spleen: Unremarkable. Adrenals: Unremarkable. Kidneys and ureters: No mass. No radiodense calculi. No hydronephrosis. Stomach and bowel: No bowel wall thickening. No obstruction. No pneumatosis. Appendix: Normal. Intraperitoneal space: No free fluid. No organized fluid collection. No free air. Vasculature: Unremarkable. No aneurysm. Lymph nodes: No pathologically enlarged lymph nodes. Bladder: Unremarkable. Reproductive: Gravid uterus. Bones/joints: No acute osseous abnormality. Mild degenerative changes. Soft tissues: Small, fat containing umbilical hernia. CT/CT abdomen pelvis w con* [id number]: 1[address] No CT evidence of acute appendicitis. 2. Additional findings, as above. Radiation Dose CTDIVOL = (mGy): DLP = 966.76 (mGy-cm)
[2019-12-20 13:30] VITALS: RESP 15
[2019-12-20] MEDS: morphine 4 mg/mL SDV 1 mL 2 MG IVP ×2 (13:30→14:47)
[2019-12-20 13:31] VITALS: PULSE 75; RESP 15; O2SAT 98
[2019-12-20 14:13] VITALS: RESP 20; O2SAT 98
[2019-12-20] MEDS: morphine 4 mg/mL SDV 1 mL IVP (14:13)
[2019-12-20 14:47] VITALS: RESP 16
[2019-12-20] MEDS: iohexol 300 mg/mL 100 mL Btl IV (15:22)
[2019-12-20 15:48] VITALS: BP 145/85; PULSE 96; RESP 16; O2SAT 97
== END 2019-12-20 15:48 | disposition home or self-care (01) ==
PROVIDERS: Emergency Provider Family Medicine; Family Provider Family Medicine; PCP Nurse Practitioner
DX: O26.892 Other specified pregnancy related conditions, second trimester (principal); R10.9 Unspecified abdominal pain; Z3A.14 14 weeks gestation of pregnancy
CPT/HCPCS: 12345; 36415; 74177; 76830; 76856; 80053; 81003; 83605; 83690; 84702; 85025; 96374; 96375; 96376; 99282; 99283; J2270; J2405; Q9967

== ENCOUNTER 2020-01-05 20:24 | Emergency (ER) | payer MEDICAID, SELFPAY ==
[2020-01-05 20:30] VITALS: BP 120/83; PULSE 100; RESP 20; TEMP 36.9; O2SAT 98; BMI 44.6
--- NOTE | 2020-01-05 20:47 | ED_ITS ---
HPI - Abdominal Pain General: Chief Complaint: Abdominal Pain Stated Complaint: 16 WEEKS PREG; PRESSURE/CONTRACTIONS Time Seen by Provider: 01/05/20 20:36 Source: patient Mode of arrival: ambulatory Limitations: no limitations History of Present Illness: HPI narrative: 29-year-old female who is currently 15 weeks states she has had abdominal cramping over the last day. States that it is lower in nature and feels like her uterus is cramping. States pain is currently a 2 out of 10. Denies any worsening or improving factors. She denies any vaginal bleeding or gush of fluid patient seen here few weeks ago for abdominal pain had a CT to rule out appendicitis that was normal. States she has had nausea with this and had nausea and vomiting on the way he re. MD elicited complaint: abdominal pain Pertinent past history: none Associated Symptoms: Reports nausea; Denies chills, dysuria and fever(s) Related Data: Date of Last Menstrual Period: 08/13/19 Review of Systems Const: Denies: fever(s), chills, body aches or change in appetite Eyes: Denies: blurry vision or eye discomfort ENMT: Denies: throat pain or dental pain Card: Denies: chest pain Resp: Denies: dyspnea GI: Reports: abdominal pain and nausea : Denies: dysuria Musc: Denies: neck pain or back pain Skin/Breast: Denies: rash Neuro: Denies: headache(s) Psych: Denies: depression Adrian/Lymph: Denies: easy bruising All/Imm: Denies: urticaria PFSH ED PFSH: Medical History Endometriosis Surgical History H/O hand surgery Hx of cholecystectomy Social History Smoking and tobacco status: never smoked Female Reproductive History: Date of last menstrual period: 08/13/19 Physical Exam Const: COMMON NORMALS: no acute distress, patient oriented x3 and healthy appearing HENMT: COMMON NORMALS: normocephalic and atraumatic HEAD & SCALP: nor mocephalic and atraumatic Eye: COMMON NORMALS: Equal, round and reactive pupils present and EOMs intact bilaterally PUPIL: Yes Equal, round and reactive pupils present Neck/C-Spine: COMMON NORMALS: full ROM and supple Chest: COMMONS NORMALS: normal inspection of the chest and normal palpation of entire chest wall Resp: COMMON NORMALS: normal respiratory effort, No retractions, No use of accessory muscles and clear to auscultation bilaterally AUSCULTATION: clear to auscultation bilaterally Cardio: COMMON NORMALS: regular rate, regular rhythm and No murmurs present (Cardio) RATE: regular rate RHYTHM: regular rhythm GI: COMMON NORMALS: Normal to inspection, nondistended, normoactive bowel sounds present, Soft to palpation, non-tender and no masses PALPATION: Yes Soft to palpation OTHER: gravid uterus Extremity: COMMON NORMALS: normal to inspection and full ROM Neuro: COMMON NORMALS: patient oriented x3, moves all extremities and no focal motor deficits Psych: COMMON NORMALS: mental status grossly normal, Normal thought process present and cooperative THOUGHT PROCESS: Normal thought process present Skin: COMMON NORMALS: no rashes or lesions noted and no wounds GENERAL SKIN EXAM: no rashes or lesions noted Course Vital Signs: Vital signs: Vital Signs Temperature 98.5 F 01/05/20 20:30 Pulse Rate 77 01/05/20 21:04 Respiratory Rate 18 01/05/20 21:04 Blood Pressure 134/90 01/05/20 21:04 Pulse Oximetry 98 01/05/20 21:04 MDM - Abdominal Pain MDM Narrative: Medical decision making narrative: Patient presents here with abdominal pain and likely from her urinary tract infection. Patient is well-appearing here and bedside ultrasound showed IUP consistent with dates with heart rate of 150. Patient has no bleeding. Patient is stable for discharge and return if worsening. She is to follow-up with her OB in 2 to 4 days. Lab Data: Labs: Lab Results 01/05/20 Range/Units 20:35 Urine Color Straw (Yellow) Urine Appearance Hazy A (CLEAR) Urine pH 6 (5-7) Ur Specific Gravit y 1.005 (1.005-1.030) Urine Protein Neg (Negative) Urine Glucose (UA) Norm (Normal) Urine Ketones Negative (Negative) Urine Blood Neg (Negative) Urine Nitrate Negative (Negative) Urine Bilirubin Neg (NEGATIVE) Urine Urobilinogen Norm (Negative) mg/dL Ur Leukocyte Janice ase 2+ H (Negative) Urine RBC 0-4 H (0-2) /hpf Urine WBC 5-10 H (0-5) /hpf Ur Squamous Epith Cells 10-15 H (0-5) Amorphous Sediment Not Reportable Urine Bacteria 3+ H (NONE) Discharge Plan Discharge Patient Disposition: Home, Self-Care Clinical Impression: Abdominal pain affecting Acute cystitis Qualifiers: Hematuria presence: without hematuria Qualified Code(s): N30.00 - Acute cystitis without hematuria Condition: Stable Prescriptions: New Keflex 500 mg capsule 500 mg PO Q6H 7 Days Qty: 28 RF: 0 Reglan 10 mg tablet 10 mg PO Q6H PRN (Reason: nausea and vomiting) Qty: 20 RF: 0 No Action ondansetron HCl 4 mg tablet 4 mg PO PRN PRN (Reason: pain/nausea/vomiting) RF: 0 Discharge Orders: Discharge Order (Routine); Ordered 01/05/20 Ordered By: Campos Connelly Referrals: Kimmie Tanner, VICE PRESIDENT EDUC[facility] [Primary Care Provider] - Discharge Diet: Advance as tolerated Discharge Activity: Resume usual activity Patient Instructions: Abdominal Pain (ED) Coding Level of Care Code ED Technical Communicator for Chg Fwd Exam Comprehensive
[2020-01-05 21:04] VITALS: BP 134/90; PULSE 77; RESP 18; O2SAT 98
[2020-01-05] MEDS: sodium chloride 0.9% 1,000 ML 999 ML IV (21:11)
[2020-01-05] MEDS: metoclopramide 5 mg/mL SDV 2 mL 10 MG IVP (21:12)
[2020-01-05] MEDS: diphenhydrAMINE 50 mg/mL SDV 1mL IVP (21:16)
[2020-01-05 21:37] LABS: Add Urine Microscopic? YES; Bilirubin Urine Neg (NEGATIVE); Blood Urine Neg (Negative); Glucose Urine UA Norm (Normal); Ketones Urine Negative (Negative); Leukocyte Esterase Urine 2+ (Negative); Nitrate Urine Negative (Negative); Protein Urine Neg (Negative); Specific Gravity, Urine 1.005 (1.005-1.030); Urine Appearance Hazy (CLEAR); Urine Color Straw (Yellow); Urobilinogen Urine Norm (Negative); pH Urine 6 (5-7)
[2020-01-05 21:44] LABS: Add Urine Culture? No; Bacteria Urine 3+; RBC Urine 0-4 /hpf (0-2)
[2020-01-05] MEDS: cefTRIAXone 1,000 MG in sodium chloride 0.9% (plus) 50 ML 100 MG IV (21:52)
[2020-01-05 21:57] VITALS: BP 134/90; PULSE 68; RESP 18; O2SAT 95
[2020-01-05 22:47] VITALS: PULSE 86; RESP 18; O2SAT 98
== END 2020-01-05 22:48 | disposition home or self-care (01) ==
PROVIDERS: Nurse Practitioner Family; Emergency Provider Emergency Medicine; PCP Nurse Practitioner
DX: O23.12 Infections of bladder in pregnancy, second trimester (principal); Z3A.15 15 weeks gestation of pregnancy
CPT/HCPCS: 12345; 81001; 96360; 96361; 96365; 96375; 99283; J0696; J1200; J2765; J7030

== ENCOUNTER 2020-02-01 21:45 | Outpatient (CLI) | payer MEDICAID, SELFPAY ==
[2020-02-01 21:59] VITALS: BP 0/0
[2020-02-01 22:01] VITALS: BP 121/62; PULSE 78
[2020-02-01 22:16] VITALS: BMI 43.4
[2020-02-01 22:35] LABS: Hematocrit 36.9 % (37.0-47.0); Mean Corpuscular HGB Conc 32.5 g/dL (30.0-36.0); Mean Corpuscular Hemoglobin 27.1 pg (28.0-34.0); Mean Corpuscular Volume 83.5 fL (81-99); Mean Platelet Volume 10.6 fL (7.4-10.4); Platelet Count 217 10^3/cmm (130-400); Red Blood Count 4.42 10^6/uL (4.1-5.3); Red Cell Distribution Width 14.3 % (12.1-15.1); White Blood Count 13.5 10^3/uL (4.0-10.0)
[2020-02-01 22:50] LABS: Add Urine Culture? Yes; Add Urine Microscopic? YES; Bacteria Urine 2+; Bilirubin Urine Neg (NEGATIVE); Blood Urine Neg (Negative); Glucose Urine UA Norm (Normal); Ketones Urine Negative (Negative); Leukocyte Esterase Urine 2+ (Negative); Nitrate Urine Negative (Negative); Protein Urine Neg (Negative); RBC Urine 0-4 /hpf (0-2); Squamous Epithelial Cell Urine 0-4 (0-5); Urine Appearance Cloudy (CLEAR); Urine Color Yellow (Yellow); Urobilinogen Urine Norm (Negative); WBC Urine 25-40 /hpf (0-5); pH Urine 6 (5-7)
[2020-02-01 22:57] LABS: Absolute Eosinophils 0.1 10^3/cmm (0.0-0.7); Absolute Neutrophil 10.4 10^3/cmm (1.4-6.5); Band Neutrophils Absolute 0.4 10^3/cmm (0.0-1.2); Eosinophils 1 %; Lymphocytes 20 %; Monocytes Absolute 0.3 10^3/cmm (0.1-0.6); Platelet Estimate Normal (Normal); Segmented Neutrophils 74 %; Total Cells Counted 100 (0-100)
--- NOTE | 2020-02-01 22:58 | PC.NURSE ---
Pt. shown to triage room and provided with gown.
[2020-02-01 23:22] VITALS: BP 112/48; PULSE 70
[2020-02-01 23:36] VITALS: BP 131/61; PULSE 65
[2020-02-01] MEDS: acetaminophen 500 mg Tablet 1000 MG PO (23:38)
[2020-02-01] MEDS: cefTRIAXone 1,000 mg SDV 1000 MG IM (23:39)
[2020-02-01 23:55] VITALS: BP 131/61; PULSE 65; RESP 18; TEMP 36.9
== END 2020-02-01 23:55 | disposition home or self-care (01) ==
LOC: OPOB 21:53 → OBGYN 21:53
PROVIDERS: PCP Nurse Practitioner; Visit Provider Family Medicine
DX: O26.899 Other specified pregnancy related conditions, unspecified trimester (principal); Z3A.00 Weeks of gestation of pregnancy not specified; R52 Pain, unspecified
CPT/HCPCS: 36415; 81001; 81003; 85007; 85027; 87086; 96372; 99211; J0696

== ENCOUNTER 2020-03-08 19:55 | Outpatient (CLI) | payer MEDICAID, SELFPAY | END 2020-03-08 22:25 | disposition home or self-care (01) | LOC: OPOB 20:08 → OBGYN 20:08 | PROVIDERS: PCP Nurse Practitioner; Visit Provider Family Medicine | DX: O26.899 Other specified pregnancy related conditions, unspecified trimester (principal); Z3A.00 Weeks of gestation of pregnancy not specified; R10.9 Unspecified abdominal pain | CPT/HCPCS: 59025; 99211 ==

== ENCOUNTER 2020-03-11 15:50 | Outpatient (CLI) | payer MEDICAID, SELFPAY ==
[2020-03-11] VITALS (8 sets, daily range): BP systolic 92–103; BP diastolic 46–61; PULSE 66–83; RESP 18; TEMP 37.3; BMI 44.0
[2020-03-11 17:15] LABS: Add Urine Microscopic? YES; Bilirubin Urine Neg (NEGATIVE); Blood Urine Neg (Negative); Glucose Urine UA Norm (Normal); Ketones Urine Negative (Negative); Leukocyte Esterase Urine 2+ (Negative); Nitrate Urine Negative (Negative); Protein Urine Neg (Negative); Urine Appearance Cloudy (CLEAR); Urine Color Yellow (Yellow); Urobilinogen Urine Neg (Negative); pH Urine 6 (5-7)
[2020-03-11 17:16] LABS: Add Urine Culture? No; Bacteria Urine 2+; RBC Urine 0-4 /hpf (0-2); Squamous Epithelial Cell Urine 40-55 (0-5); WBC Urine 40-55 /hpf (0-5)
--- NOTE | 2020-03-11 17:31 | PC.NURSE ---
Prescription for Keflex 500mg po TID called into [facility] in [place].
== END 2020-03-11 17:35 | disposition home or self-care (01) ==
LOC: OPOB 15:51 → OBGYN 15:52
PROVIDERS: PCP Nurse Practitioner; Visit Provider Family Medicine
DX: O26.899 Other specified pregnancy related conditions, unspecified trimester (principal); Z3A.00 Weeks of gestation of pregnancy not specified
CPT/HCPCS: 81001; 83986; 87086; 99211

== ENCOUNTER 2020-04-17 21:00 | Outpatient (CLI) | payer MEDICAID, SELFPAY ==
[2020-04-17 21:23] VITALS: BP 103/50; PULSE 97; RESP 16; TEMP 37.1
[2020-04-17 21:34] VITALS: BMI 45.1
[2020-04-17 22:09] VITALS: BP 103/50; PULSE 97; RESP 16; TEMP 37.1
--- NOTE | 2020-04-17 23:37 | PC.NURSE ---
Addendum entered by Clementina Mata RN 04/17/20 23:39: Conversation with patient was at 2140 Original Note: Asked patient if she felt like she was still leaking and patient denies any further leaking and states she did not wear a pad to the hospital and did not have any leaking on clothing. Patient then states that I could have peed on myself, when I wiped it was yellow.
== END 2020-04-17 22:12 | disposition home or self-care (01) ==
LOC: OPOB 21:13 → OBGYN 21:14
PROVIDERS: PCP Nurse Practitioner; Visit Provider Family Medicine
DX: O26.899 Other specified pregnancy related conditions, unspecified trimester (principal); Z3A.00 Weeks of gestation of pregnancy not specified; N89.8 Other specified noninflammatory disorders of vagina
CPT/HCPCS: 99211

== ENCOUNTER 2020-04-18 23:26 | Outpatient (CLI) | payer MEDICAID, SELFPAY ==
[2020-04-18 23:41] VITALS: BP 119/62; PULSE 80; RESP 16; TEMP 36.6
[2020-04-19 00:08] VITALS: BMI 45.0
[2020-04-19 00:11] VITALS: BP 119/62; PULSE 80; RESP 16; TEMP 36.6
== END 2020-04-19 00:22 | disposition home or self-care (01) ==
LOC: OPOB 23:27 → OBGYN 23:27
PROVIDERS: PCP Nurse Practitioner; Visit Provider Family Medicine
DX: O16.9 Unspecified maternal hypertension, unspecified trimester (principal); Z3A.00 Weeks of gestation of pregnancy not specified
CPT/HCPCS: 59025; 99211

== ENCOUNTER 2020-05-04 19:20 | Outpatient (CLI) | payer MEDICAID, SELFPAY ==
[2020-05-04 19:28] VITALS: RESP 17; TEMP 36.8
[2020-05-04 19:32] VITALS: BMI 45.6
[2020-05-04 19:45] VITALS: BP 124/57; PULSE 85; RESP 17; TEMP 36.9; O2SAT 97
[2020-05-04] MEDS: acetaminophen 500 mg Tablet 1000 MG PO (20:08)
[2020-05-04 20:55] LABS: Add Urine Microscopic? YES; Bilirubin Urine Neg (Negative); Blood Urine Neg (Negative); Glucose Urine UA Norm (Normal); Ketones Urine Negative (Negative); Leukocyte Esterase Urine 2+ (Negative); Nitrate Urine Negative (Negative); Protein Urine Neg (Negative); Urine Appearance Hazy (CLEAR); Urine Color Straw (Yellow); Urobilinogen Urine Norm (Negative); pH Urine 6 (5-7)
[2020-05-04 20:56] LABS: Add Urine Culture? No; Bacteria Urine 3+ /hpf; RBC Urine 0-4 /hpf (0-2); Squamous Epithelial Cell Urine 15-25 /hpf (0-5)
[2020-05-04 21:09] VITALS: BP 109/50; PULSE 82; RESP 17; TEMP 36.8; O2SAT 98
== END 2020-05-04 21:45 | disposition home or self-care (01) ==
LOC: OPOB 19:21 → OBGYN 21:15
PROVIDERS: PCP Nurse Practitioner; Visit Provider Family Medicine
DX: O26.899 Other specified pregnancy related conditions, unspecified trimester (principal); Z3A.00 Weeks of gestation of pregnancy not specified; R10.2 Pelvic and perineal pain
CPT/HCPCS: 59025; 81001; 99211

== ENCOUNTER 2020-05-21 13:40 | Outpatient (CLI) | payer MEDICAID, SELFPAY ==
[2020-05-21 14:00] VITALS: RESP 18; TEMP 37.1
[2020-05-21 14:02] VITALS: BMI 45.8
[2020-05-21 14:20] VITALS: BP 124/74; PULSE 76
== END 2020-05-21 14:30 | disposition home or self-care (01) ==
LOC: OPOB 13:53 → OBGYN 13:57
PROVIDERS: PCP Nurse Practitioner; Visit Provider Family Medicine
DX: O62.9 Abnormality of forces of labor, unspecified (principal); Z3A.00 Weeks of gestation of pregnancy not specified
CPT/HCPCS: 99211

== ENCOUNTER 2020-05-25 21:03 | Outpatient (CLI) | payer MEDICAID, SELFPAY ==
[2020-05-25 21:13] VITALS: BMI 46.7
[2020-05-25 21:14] VITALS: RESP 17; TEMP 36.8
[2020-05-25 21:17] VITALS: BP 75/68; PULSE 80
[2020-05-25 21:19] VITALS: BP 137/71; PULSE 82
[2020-05-25 22:09] LABS: Nitrazine Paper, PH Negative
[2020-05-25 22:20] VITALS: BP 137/71; PULSE 82; RESP 17; TEMP 36.8
== END 2020-05-25 22:00 | disposition home or self-care (01) ==
LOC: OPOB 21:09 → OBGYN 21:09
PROVIDERS: PCP Nurse Practitioner; Visit Provider Family Medicine
DX: O42.90 Premature rupture of membranes, unspecified as to length of time between rupture and onset of labor, unspecified weeks of gestation (principal); Z3A.00 Weeks of gestation of pregnancy not specified
CPT/HCPCS: 59025; 83986; 99211

== ENCOUNTER 2020-05-30 09:32 | Outpatient (CLI) | payer MEDICAID, SELFPAY ==
[2020-05-30] VITALS (12 sets, daily range): BP systolic 0–145; BP diastolic 0–77; PULSE 68–97; RESP 20; TEMP 36.7; BMI 47.0
[2020-05-30] MEDS: acetaminophen 500 mg Tablet 1000 MG PO (10:36)
[2020-05-30 11:54] LABS: Bilirubin Urine Neg (Negative); Blood Urine Neg (Negative); Glucose Urine UA Norm (Normal); Ketones Urine Negative (Negative); Leukocyte Esterase Urine 2+ (Negative); Nitrate Urine Negative (Negative); Protein Urine Neg (Negative); Specific Gravity, Urine 1.005 (1.005-1.030); Urine Appearance Hazy (CLEAR); Urine Color Yellow (Yellow); Urobilinogen Urine Norm (Negative); pH Urine 7 (5-7)
[2020-05-30 11:57] LABS: Bacteria Urine 2+ /hpf; Mucus Urine 2+ /hpf; Squamous Epithelial Cell Urine 25-40 /hpf (0-5)
[2020-05-30 11:58] LABS: Add Urine Culture? No; WBC Urine 25-40 /hpf (0-5)
== END 2020-05-30 12:20 | disposition home or self-care (01) ==
LOC: OPOB 09:38 → OBGYN 09:39
PROVIDERS: PCP Nurse Practitioner; Visit Provider Family Medicine
DX: O26.899 Other specified pregnancy related conditions, unspecified trimester (principal); M54.9 Dorsalgia, unspecified; R10.2 Pelvic and perineal pain
CPT/HCPCS: 59025; 81001; 99211

== ENCOUNTER 2020-05-31 16:35 | Outpatient (CLI) | payer MEDICAID, SELFPAY ==
[2020-05-31] VITALS (7 sets, daily range): BP systolic 0–154; BP diastolic 0–84; PULSE 75–82; RESP 18; TEMP 36.4; BMI 47.1
--- NOTE | 2020-05-31 17:33 | USR_ITS ---
PROCEDURE INFORMATION: Exam: US Biophysical Profile Without Non-Stress Test Exam date and time: 05/31/2020 6:28 PM Age: 29 years old Clinical indication: Other: deceleration with slow return; ; Patient HX: 37w 5 days. Edc 06-16-2020 TECHNIQUE: Imaging protocol: US biophysical profile without non-stress testing. COMPARISON: US OB >= 14 weeks fetus [id number] 01/26/2020 11:20 AM FINDINGS: BIOPHYSICAL PROFILE: Breathin/2 Gross body movements: 2/2 tone: 2/2 Qualitative amniotic fluid: 2/2 Biophysical Profile Score: 8/8 US/US OB BPP wo NST [id number] IMPRESSION: Biophysical profile score is 8 out of 8.
== END 2020-05-31 18:30 | disposition home or self-care (01) ==
LOC: OBGYN 18:32 → OPOB 06-01 08:44 → OBGYN 06-01 08:45
PROVIDERS: PCP Family Medicine; Visit Provider Family Medicine
DX: O36.8330 Maternal care for abnormalities of the fetal heart rate or rhythm, third trimester, not applicable or unspecified (principal); Z3A.37 37 weeks gestation of pregnancy
CPT/HCPCS: 59025; 76819; 99211; G0378; G0379

== ENCOUNTER 2020-06-05 15:22 | Observation (INO) | payer MEDICAID, SELFPAY ==
[2020-06-05 15:27] VITALS: BMI 46.7
[2020-06-05 15:40] VITALS: BP 144/72; PULSE 86
[2020-06-05 15:55] VITALS: BP 0/0
[2020-06-05 15:56] VITALS: BP 126/66; PULSE 78
[2020-06-05 16:10] VITALS: BP 128/68; PULSE 80
[2020-06-05 16:19] VITALS: BP 128/68; PULSE 80
[2020-06-05 16:58] LABS: Nitrazine Paper, PH Negative
== END 2020-06-05 16:21 | disposition home or self-care (01) ==
PROVIDERS: Admitting Provider Family Medicine; PCP Family Medicine; Visit Provider Family Medicine
DX: O26.899 Other specified pregnancy related conditions, unspecified trimester (principal); Z3A.00 Weeks of gestation of pregnancy not specified; N89.8 Other specified noninflammatory disorders of vagina
CPT/HCPCS: 83986; 99211; G0378; G0379

== ENCOUNTER 2020-06-08 21:00 | Inpatient (IN) | payer MEDICAID, SELFPAY ==
[2020-06-08] VITALS (18 sets, daily range): BP systolic 0–152; BP diastolic 0–89; PULSE 69–80; RESP 16; TEMP 36.9; BMI 47.4
--- NOTE | 2020-06-08 18:45 | PC.NURSE ---
Patient reported feeling leaking since 1839, when getting out of the car to come to the department.
[2020-06-08 22:24] LABS: Basophils % 0.3 %; Eosinophils # 0.2 10^3/uL (0.0-0.8); Eosinophils % 1.2 %; Hematocrit 41.2 % (37.0-47.0); Hemoglobin 13.2 g/dL (11.5-15.3); Lymphocytes # 2.6 10^3/uL (0.8-4.8); Lymphocytes % 17.1 %; Mean Corpuscular Hemoglobin 26.5 pg (28.0-34.0); Mean Corpuscular Volume 82.6 fL (81-99); Mean Platelet Volume 11.6 fL (7.4-10.4); Monocytes # 0.9 10^3/uL (0.2-0.9); Monocytes % 5.8 %; Neutrophils # 11.65 10^3/uL (1.8-7.7); Neutrophils % 75.2 %; Nucleated Red Blood Cells % 0 %; Platelet Count 236 10^3/cmm (130-400); Red Blood Count 4.99 10^6/uL (4.1-5.3); White Blood Count 15.5 10^3/uL (4.0-10.0)
[2020-06-08] MEDS: ondansetron 2 mg/ML SDV 2 mL 4 MG IVP (22:57)
[2020-06-08] MEDS: alum-mag-hydroxide-sime 30 mL UDC PO (22:57)
[2020-06-08] MEDS: lactated ringers 1,000 ML 999 ML IV (23:44)
[2020-06-09] VITALS (79 sets, daily range): BP systolic 0–145; BP diastolic 0–110; PULSE 52–86; RESP 16–20; TEMP 36.1–36.9; O2SAT 72–100
[2020-06-09] MEDS: dextrose 5%-lactated ringers 1,000 ML 125 ML IV (00:49)
--- NOTE | 2020-06-09 00:50 | ANES.PREANE2 ---
Pre-Anesthetic Assessment Pre-Anesthetic Assessment: Height/Weight: Height 1.68 m Weight 133.356 kg Temp Pulse Resp BP 98.4 F 57 L 16 119/66 06/08/20 22:15 06/09/20 00:46 06/08/20 22:15 06/09/20 00:46 Preop Diagnosis: Labor pain Proposed Procedure: Epidural Familial anesthetic complications: Dural Puncture headache after last epidural Was Beta Javid taken within 24 hours: N/A Social: Social History: No alcohol and No tobacco Exam: Pre-Anes Outpt Exam: alert, oriented x 3, clear to auscultation bilaterally and regular rate & rhythm Airway: Submandibular: WNL Cervical ROM: WNL MP: 2 Dentition: Full Pulmonary: Pulmonary: None reported CV/HEM: CV/HEM: None reported : : None reported Hepatic: Hepatic: None reported GI: GI: GERD (with ) Metabolic: Metabolic: Morbid obesity Musc/skel: Musc/skel: None reported Neuropsych: Neuropsych: Anxiety and Depression Anesthetic Plan: ASA status: 2 Anesthesia: Eval. for regional block and Regional (specify below) Risk of > 500 ml blood loss (7ml/kg in children): No Meds/Allergies Current Medications: Current Medications Generic Name Dose Route Start Last Admin Trade Name Freq PRN Reason Stop Dose Admin Al Hydrox/Mg [place] x/Simethicone 30 ml 06/08/20 22:15 06/08/20 22:57 [id number]-[id number] de-Alexandra 30 Ml Udc PO 30 ml Q4H PRN Administration INDIGESTION Lactated Ringer's 1,000 mls @ 999 m ls/hr 06/08/20 22:15 06/09/20 00:49 Lactated Ringers IV Infused .Q1H1M PRN Infusion See label comment s Dextrose/Lactated Ringer's 1,000 mls @ 125 m ls/hr 06/08/20 22:15 06/09/20 00:49 Dextrose 5%-Lact ated Ringers IV 125 mls/hr .Q8H PRN Administration LABOR INDUCTION Ondansetron HCl 4 mg 06/08/20 22:15 06/08/20 22:57 Ondansetron 2 Mg /Ml Sdv 2 Ml IVP 4 mg Q4H PRN Administration NAUSEA AND VOMITI NG PFSH Anesthesia PFSH: Medical History (Updated 01/13/20 @ 00:00 by ) Endometriosis Surgical History H/O hand surgery Hx of cholecystectomy Social History Smoking and tobacco status: never smoked Female Reproductive History: Date of last menstrual period: 08/13/19 : 3 Data Anesthesia CBC & Chem 7: 06/08/20 21:25 Other Labs: Laboratory Results - last 48 hr 06/08/20 21:25 WBC 15.5 H RBC 4.99 Hgb 13.2 Hct 41.2 MCV 82.6 MCH 26.5 L MCHC 32.0 RDW 14.0 Plt Count 236 MPV 11.6 H Neut % (Auto) 75.2 Lymph % (Auto) 17.1 [place] % (Auto) 5.8 Eos % (Auto) 1.2 Baso % (Auto) 0.3 Neut # (Auto) 11.65 H Lymph # (Auto) 2.6 [place] # (Auto) 0.9 Eos # (Auto) 0.2 Baso # (Auto) 0.0 Nucleated RBC % (auto) 0 Nucleated RBCs # 0.0 Cardiac Studies: No Data to Display
--- NOTE | 2020-06-09 01:20 | ANES.PROC ---
Anesthesia Procedures Procedure/Date: 06/09/20 epidural Procedure Narrative: epidural complete, bolus given, epidural pump initiated with ELECTRIC UTILITY LINEWORKER education given, vitals taken during procedure using OBIX system and satisfactory throughout, patient admits to decrease pain, report of procedure to OB RN Epidural: Time Out Performed: Yes Consents Signed: Procedure Consent Consent: requested by attending/covering physician, from patient, risks and benefits reviewed and patient agrees to proceed Lumbar Level: L3-L4 Epidural position: sitting Epidural procedure: sterile prep of area, 1% lidocaine to numb the area (3 mL), 18 g needle, negative for paresthesia passed, neg for paresthesia, test dose given, 1.5% xylocaine 1:200k epi (5 mL), 0.2% Ropivacaine bolus ml (5 mL), placed PCEA, no systemic response, sterile dressing applied, L.U.D. no apparent complications and 0.2% Ropiavacaine @ mls/hr (13 mL/hr)
[2020-06-09] MEDS: oxytocin 30 UNIT/500 ML BAG IV (04:19)
--- NOTE | 2020-06-09 07:21 | PM.DELIVERY ---
Delivery Note: Date of delivery: June 09, 2020 Delivery: DELIVERY: The patient progressed to complete without difficulty. She delivered a female with a weight of 6 pounds 11 ounces with Apgars of 9, 10. The baby was delivered from the RICA position. The baby's mouth and nose were suctioned at the site of the perineum. The baby was then completely delivered and placed on the mother's abdomen. The cord was then clamped and cut. There was no nuchal cord. There was no meconium. The placenta and 3 vessel cord were delivered intact shortly thereafter. The perineum and vaginal vault were carefully examined. No lacerations were noted. Both the mother and the baby were in stable condition. Blood loss was 50 mL A&P Assessment and plan (1) Spontaneous vaginal delivery: Anticipate routine care Status: Acute (2) 39 weeks gestation of : Status: Acute Coding Level of Care Code Acute Shoe Sewing Machine Operator And Tender for Chg Fwd Diagnoses Spontaneous vaginal delivery O80 39 weeks gestation of Z3A.39
[2020-06-09] MEDS: oxytocin 30 UNIT/500 ML BAG 999 UNIT IV (07:53)
--- NOTE | 2020-06-09 07:56 | PC.NURSE ---
Baby at the breast when I entered room. Has rhythmic sucking. Mom reports no nipple pain. Mom reported she dried up at 16 weeks with her first baby. She was using 6 oz. formula per day priot to that and not pumping. Discussed this, encouraged nursing as much as baby indicates need in order to establish milk supply.
[2020-06-09] MEDS: prenatal vitamin Capsule 1 CAP PO (08:50)
[2020-06-09] MEDS: ibuprofen 800 mg tablet PO ×3 (08:50→20:53)
[2020-06-09] MEDS: docusate sodium 100 mg Capsule PO ×2 (08:50→14:54)
--- NOTE | 2020-06-09 09:11 | PC.NURSE ---
BOTH PARENTS WERE COVID POSITIVE ABOUT 2 MONTHS AGO.
--- NOTE | 2020-06-09 09:27 | PC.NURSE ---
DR. SCHNEIDER TOLD ABOUT INCREASED BLEEDING OK WITH ANOTHER BG OF PITOCIN.
--- NOTE | 2020-06-09 11:17 | PC.NURSE ---
ATTEMPTED TO GET PT UP AND RIGHT LEG STILL NOT GOT FULL FEELING IN IT SO TOLD HER THAT WE WOULD TRY AGAIN SHORTLY. FUNDUS FIRM AND SHE STATES THAT SHE DOES NOT FEEL LIKE SHE NEEDS TO VOID.
--- NOTE | 2020-06-09 12:28 | PC.NURSE ---
PATIENT'S RIGHT LEG STILL ALITTLE NUMB AND DOES SUPPORT HER VERY WELL YET, SO THIS MANUFACTURING APPLICATIONS ENGINEER ASSISTED HER TO BEDSIDE COMMODE, SHE STOOD AND TURNED AND SAT DOWN VERY CONTROLLED. THEN AFTER SHE VOIDED WE STOOD AGAIN AND THEN TURNED AND SAT DOWN IN WHEELCHAIR AND THEN WE MOVED HER UP TO 206 AND THEN WE STOOD AND TURNED AND SAT DOWN EVEN MORE CONTROLLED. ORIENTED HER TO ROOM, CALL LIGHT SYSTEM AND TOLD HER NOT TO GET UP BY HERSELF. PT STATED THAT SHE WOULD NOT. WENT OVER PP PACK WITH HER.
[2020-06-09 20:18] LABS: Hematocrit 37.1 % (37.0-47.0); Hemoglobin 12.1 g/dL (11.5-15.3); Mean Corpuscular HGB Conc 32.6 g/dL (30.0-36.0); Mean Corpuscular Hemoglobin 26.8 pg (28.0-34.0); Mean Corpuscular Volume 82.3 fL (81-99); Mean Platelet Volume 11.4 fL (7.4-10.4); Platelet Count 218 10^3/cmm (130-400); Red Blood Count 4.51 10^6/uL (4.1-5.3); Red Cell Distribution Width 14.5 % (12.1-15.1)
[2020-06-09] MEDS: lanolin oint 7 gm 1 APPLIC TOPICAL (21:41)
[2020-06-09] MEDS: benzocaine-menthol 78 gm Canister 1 SPRAY TOPICAL (21:42)
[2020-06-10] MEDS: HYDROcodone-acetaminophen 5-325 mg Tablet PO ×2 (04:10→10:09)
[2020-06-10 05:23] VITALS: BP 111/73; PULSE 71; RESP 16; TEMP 36.2; O2SAT 97
--- NOTE | 2020-06-10 07:17 | P.DS_ITS ---
Discharge Providers CASH PROCESSING SPECIALIST Date of Admission: 06/08/20 21:00 Date of Discharge: 06/10/20 Attending Provider at Admission: Milton Mcintyre MD Attending Provider at Discharge: Milton Mcintyre MD Primary Care Provider: Milton Mcintyre MD Diagnoses at Discharge Discharge Diagnosis (1) Spontaneous vaginal delivery: Status: Acute (2) 39 weeks gestation of : Status: Acute Reason for Visit Reason for Visit: contractions Hospital Course Hospital Course The patient is a 29-year-old female at 39 weeks who presented to the hospital in active labor. Her course was unremarkable. An epidural was placed. She progressed to complete and had an unremarkable delivery of a healthy appearing female. Her course was also unremarkable. She breast-fed well. Her pain was well controlled. Her bleeding was within normal limits. Information Peripartum Data: Infant Delivery Method: Vaginal Physical Exam Narrative: EXAM NARRATIVE: The patient is alert. She appears comfortable. Her heart has a regular rate and rhythm with no murmurs appreciated. Lungs are clear to auscultation bilaterally. Her fundus is firm and below the umbilicus. Urinary Catheter Management^: Najera Latex Free: Cath Placed During This Visit: yes Urinary Catheter Date of Insertion: 06/09/20 Urinary Catheter Time of Insertion: 02:40 Discharge Data Data Completed and Pending: Labs from last 24 hours 06/09/20 19:50 WBC 14.0 H RBC 4.51 Hgb 12.1 Hct 37.1 MCV 82.3 MCH 26.8 L MCHC 32.6 RDW 14.5 Plt Count 218 MPV 11.4 H Vitals: Last Vital Signs Temp 97.1 F L 06/10/20 05:23 Pulse 71 06/10/20 05:23 Resp 16 06/10/20 05:23 BP 111/73 06/10/20 05:23 Pulse Ox 97 06/10/20 05:23 Discharge Plan Discharge Patient Disposition: Home Condition: Stable Prescriptions: New ibuprofen 800 mg Tablet 800 mg PO TID Qty: 45 RF: 0 Continued PNV cmb#95-ferrous fumarate-FA [] 28 mg iron- 800 mcg Tablet 1 tab PO DAILY RF: 0 Discharge Orders: Discharge Order (Routine); Ordered 06/10/20 Ordered By: Milton Mcintyre Referrals: Milton Mcintyre MD [Primary Care Provider] - 6 Weeks Discharge Diet: Usual diet Discharge Activity: Limit activity as instructed Discharge Attestations CASH PROCESSING SPECIALIST Time Spent in Discharge Care*: less than 30 min Coding Level of Care Code Acute Clinic Nurse for Chg Fwd Diagnoses Spontaneous vaginal delivery O80 39 weeks gestation of Z3A.39
[2020-06-10 09:00] VITALS: BP 123/78; PULSE 78; RESP 18; TEMP 36.6; O2SAT 99
[2020-06-10] MEDS: ibuprofen 800 mg tablet PO (09:00)
[2020-06-10] MEDS: docusate sodium 100 mg Capsule PO (09:00)
[2020-06-10] MEDS: prenatal vitamin Capsule 1 CAP PO (09:00)
[2020-06-10 10:15] VITALS: BP 112/69; PULSE 74; RESP 18; TEMP 36.8; O2SAT 98
[2020-06-10 10:50] VITALS: BP 112/69; PULSE 74; RESP 18; TEMP 36.8; O2SAT 98
== END 2020-06-10 10:50 | disposition home or self-care (01) | DRG 807 ==
LOC: OPOB 21:08 → OBGYN 21:08
PROVIDERS: Admitting Provider Family Medicine; PCP Family Medicine; Visit Provider Family Medicine
DX: O80 Encounter for full-term uncomplicated delivery (principal); Z37.0 Single live birth; Z3A.39 39 weeks gestation of pregnancy
CPT/HCPCS: 12345; 36415; 51702; 59025; 59409; 85025; 85027; 90471; 90686; 96375; 98960; 99211; J2405; J2795

== ENCOUNTER 2020-11-07 21:32 | Emergency (ER) | payer MEDICAID, SELFPAY ==
[2020-11-07 21:39] VITALS: BP 146/88; PULSE 87; RESP 16; TEMP 36.7; O2SAT 99; BMI 42.6
--- NOTE | 2020-11-07 21:39 | USR_ITS ---
PROCEDURE INFORMATION: Exam: US First Trimester, Transabdominal and US , Transvaginal Exam date and time: 11/07/2020 10:37 PM Age: 30 years old Clinical indication: complicated by abdominal or pelvic pain; Right upper quadrant; First trimester; ; Additional info: Threatened miscarriage TECHNIQUE: Imaging protocol: Real-time transabdominal obstetrical ultrasound of the maternal pelvis and a first trimester , less than 14 weeks 0 days, with image documentation. Transvaginal imaging was used for better evaluation of the fetus, adnexa, and/or cervix. COMPARISON: No relevant prior studies available. FINDINGS: The uterus is empty. No visible intrauterine gestational sac. Endometrial echo complex is thickened, measuring up to about 20 mm. No free pelvic fluid. Possible small complex cyst in the right ovary, measuring about 15-16 mm, possibly corpus luteum. Maternal ovaries/adnexa otherwise appear essentially unremarkable. Blood flow detected in each ovary. The sonographic appearance alone is nonspecific. The differential diagnosis includes; an early viable intrauterine less than four to five weeks gestation; a miscarriage; as well as an occult ectopic . Appropriate clinical follow up, including HCG level follow-up is recommended. The urinary bladder was not completely evaluated/imaged at this time. Endovaginal scanning provided better visualization/evaluation of the endometrium and adnexal regions, as discussed above. US/US OB <=14 wk fetus w transvag IMPRESSION: 1. No visible intrauterine gestational sac. 2. See above discussion and recommendations. 3. Possible small complex cyst in the right ovary, details above. 4. Other details discussed above.
[2020-11-07 22:04] VITALS: BP 134/64; PULSE 92; RESP 16; O2SAT 96
--- NOTE | 2020-11-07 22:05 | W.ED.FEMALGU ---
HPI - Female Genitourinary General: Chief complaint: Vaginal Bleeding Stated complaint: poss miscarriage 6 weeks Time Seen by Provider: 11/07/20 21:38 History of Present Illness: HPI Narrative: The patient is a G5, P2 at approximately 6 weeks by her last sexual activity comes to the ER complaining of vaginal spotting today. She says her last menstrual period was in August but she is very irregular so she used her last sexual activity to get her closest gestational age. MD elicited complaint: vaginal bleeding and possible miscarriage Pertinent past history: prior miscarriages Severity: mild Vaginal bleeding: scant Exacerbating factors: none Relieving factors: none Associated symptoms: Reports no associated symptoms; Deny abdominal pain or headache(s) Date of Last Menstrual Period: 08/13/19 Related Data: : 5 Review of Systems General: Reports: 10 or more systems reviewed and unremarkable except in HPI and below Const: Denies: fatigue Eyes: Denies: change in vision, blurry vision or eye redness ENMT: Denies: throat pain, swelling of lips/tongue, ear or mastoid pain or nasal congestion Card: Denies: chest pain, palpitations, irregular heart rhythm, edema, dyspnea on exertion or orthopnea Resp: Denies: dyspnea, productive cough or non-productive cough GI: Denies: abdominal pain, diarrhea or GI cramping : Denies: flank pain, difficulty voiding, urinary frequency or urinary urgency Musc: Denies: neck pain, back pain, extremity pain, joint pain, joint redness, limited range of motion or muscle weakness Skin/Breast: Denies: rash, pruritus, erythema, skin pain or skin tenderness Neuro: Denies: headache(s), numbness in extremities, weakness in extremities, sensory changes, difficulty walking, dizziness, confusion or Slurred speech present Psych: Denies: anxiety or depression Endo: Denies: polyuria All/Imm: Denies: urticaria, throat swelling or tongue swelling PFSH ED PFSH: Medical History (Updated 11/07/20 @ 23:09 by Ronald Sauceda MD) Endometriosis Surgical History H/O hand surgery Hx of cholecystectomy Social History Smoking and tobacco status: never smoked Female Reproductive History: Date of last menstrual period: 08/13/19 : 5 Physical Exam Const: COMMON NORMALS: no acute distress, average body habitus, patient oriented x3, no limitations, healthy appearing, alert and well nourished GENERAL APPEARANCE: cooperative, comfortable, well kempt and well developed ORIENTATION/CONSCIOUSNESS: Yes awake, Yes oriented to person, Yes oriented to place and Yes oriented to time HENMT: COMMON NORMALS: normocephalic, external ears normal and Normal external nose present HEAD & SCALP: normal to inspection and normocephalic NOSE: Normal external nose present EXTERNAL EAR: Yes external ears normal MOUTH: Normal oral and palatal mucosa present THROAT: posterior oropharynx normal Eye: COMMON NORMALS: Equal, round and reactive pupils present and EOMs intact bilaterally GENERAL EYE: appearance normal, both eyes and all related structures PUPIL: Yes Equal, round and reactive pupils present Neck/C-Spine: COMMON NORMALS: full ROM, no lymphadenopathy, no meningeal signs and no JVD GENERAL: Yes normal visual inspection Lymph: LYMPHATIC: no lymphadenopathy noted Chest: COMMONS NORMALS: normal inspection of the chest and normal palpation of entire chest wall Resp: COMMON NORMALS: normal respiratory effort, No retractions, No use of accessory muscles, clear to auscultation bilaterally and percussion normal EFFORT & INSPECTION: Yes able to speak in complete sentences AUSCULTATION: clear to auscultation bilaterally PERCUSSION: percussion normal Cardio: COMMON NORMALS: no JVD, regular rate, regular rhythm, S1 normal heart sound present, S2 normal heart sound present and Peripheral pulses 2+ throughout RATE: regular rate RHYTHM: regular rhythm HEART SOUNDS: S1 normal heart sound present and S2 normal heart sound present PERIPHERAL PULSES: Peripheral pulses 2+ throughout GI: COMMON NORMALS: Normal to inspection, nondistended, normoactive bowel sounds present, Soft to palpation, non-tender and no masses INSPECTION: Yes normal to inspection PALPATION: Yes Soft to palpation : COMMON NORMALS: Yes no CVA tenderness BLADDER/KIDNEY EXAM: Yes no CVA tenderness Back/Pelvis: COMMON NORMALS: no CVA tenderness, thoracic and lumbar spine normal to inspection, no thoracic nor lumbar tenderness and thoraco-lumbar ROM normal Extremity: COMMON NORMALS: normal to inspection, full ROM, capillary refill normal, no joint enlargement and no pedal edema GENERAL: Yes normal exam except as noted Neuro: COMMON NORMALS: patient oriented x3, CN's II-XII intact bilaterally, moves all extremities, no focal motor deficits, no sensory deficits noted and gait normal SENSORIUM/ORIENTATION: Yes alert, Yes oriented to person, Yes oriented to place and Yes oriented to time MENINGEAL SIGNS: Yes no meningeal signs Psych: COMMON NORMALS: mental status grossly normal, Normal thought process present, cooperative, normal affect and speech normal APPEARANCE: Yes well kempt ATTITUDE: Yes calm SPEECH: Yes normal speech THOUGHT PROCESS: Normal thought process present Skin: COMMON NORMALS: no rashes or lesions noted GENERAL SKIN EXAM: no rashes or lesions noted Course Vital Signs: Vital signs: Vital Signs Temperature 98.0 F 11/07/20 21:39 Pulse Rate 78 11/07/20 23:40 Respiratory Rate 17 11/07/20 23:40 Blood Pressure 131/70 11/07/20 23:40 Pulse Oximetry 96 11/07/20 23:40 MDM - Female MDM Narrative: Medical decision making narrative: Ultrasound does not see an intrauterine . Quantitative hCG 1150. Likely miscarriage. Recommended following up with OB in 2 days for repeat quantitative hCG and ultrasound. Her blood type is a positive. Urinalysis has 40-55 white blood cells. We will treat for urinary tract infection. Lab Data: Labs: Lab Results 11/07/20 11/07/20 11/07/20 Range/Units 21:58 21:58 21:58 WBC 9.7 (4.0-10.0) 10^3/ uL RBC 5.26 (4.1-5.3) 10^6/u L Hgb 13.9 (11.5-15.3) g/dL Hct 43.4 (37.0-47.0) % MCV 82.5 (81-99) fL MCH 26.4 L (28.0-34.0) pg MCHC 32.0 (30.0-36.0) g/dL RDW 13.7 (12.1-15.1) % Plt Count 294 (130-400) 10^3/c mm MPV 10.5 H (7.4-10.4) fL Neut % (Auto) 56.0 % Lymph % (Auto) 33.2 % [place] % (Auto) 7.9 % Eos % (Auto) 2.1 % Baso % (Auto) 0.5 % Neut # (Auto) 5.42 (1.8-7.7) 10^3/u L Lymph # (Auto) 3.2 (0.8-4.8) 10^3/u L [place] # (Auto) 0.8 (0.2-0.9) 10^3/u L Eos # (Auto) 0.2 (0.0-0.8) 10^3/u L Baso # (Auto) 0.1 (0.0-0.1) 10^3/u L Nucleated RBC % (a uto) 0 % Nucleated RBCs # 0.0 /100WBC Sodium 137 (136-145) mmol/L Potassium 3.5 (3.5-5.1) mmol/L Chloride 104 (98-107) mmol/L Carbon Dioxide 22 (22-29) mmol/L Anion Gap 14.5 (5-19) BUN 5 L (6-20) mg/dL Creatinine 0.6 (0.5-0.9) mg/dL GFR Calculation 118.2 (90-130) mL/min Glucose 96 (65-115) mg/dL Calculated Osmolal ity 281 L (285-295) mOsm/k g Calcium 9.2 (8.5-10.5) mg/dL Total Bilirubin 0.3 (0.15-1.2) mg/dL AST 29 (0-32) U/L ALT 55 H (0-33) U/L Alkaline Phosphata se 87 (35-105) IU/L Total Protein 7.5 (6.6-8.7) g/dL Albumin 4.6 (3.5-5.2) g/dL Globulin 2.9 (1.3-4.6) g/dL Ser , Dipti i-Qnt 1150.00 mIU/mL Urine Color (Yellow) Urine Appearance (CLEAR) Urine pH (5-7) Ur Specific Gravit y (1.005-1.030) Urine Protein (Negative) Urine Glucose (UA) (Normal) Urine Ketones (Negative) Urine Blood (Negative) Urine Nitrate (Negative) Urine Bilirubin (Negative) Urine Urobilinogen (Negative) mg/dL Ur Leukocyte Janice ase (Negative) Urine RBC (0-2) /hpf Urine WBC (0-5) /hpf Ur Squamous Epith Cells (0-5) /hpf Amorphous Sediment /hpf Urine Bacteria (NONE) /hpf Blood Type A Positive Rho(D) Type Positive / 4+ Antibody Screen Negative 11/07/20 Range/Units 22:19 WBC (4.0-10.0) 10^3/ uL RBC (4.1-5.3) 10^6/u L Hgb (11.5-15.3) g/dL Hct (37.0-47.0) % MCV (81-99) fL MCH (28.0-34.0) pg MCHC (30.0-36.0) g/dL RDW (12.1-15.1) % Plt Count (130-400) 10^3/c mm MPV (7.4-10.4) fL Neut % (Auto) % Lymph % (Auto) % [place] % (Auto) % Eos % (Auto) % Baso % (Auto) % Neut # (Auto) (1.8-7.7) 10^3/u L Lymph # (Auto) (0.8-4.8) 10^3/u L [place] # (Auto) (0.2-0.9) 10^3/u L Eos # (Auto) (0.0-0.8) 10^3/u L Baso # (Auto) (0.0-0.1) 10^3/u L Nucleated RBC % (a uto) % Nucleated RBCs # /100WBC Sodium (136-145) mmol/L Potassium (3.5-5.1) mmol/L Chloride (98-107) mmol/L Carbon Dioxide (22-29) mmol/L Anion Gap (5-19) BUN (6-20) mg/dL Creatinine (0.5-0.9) mg/dL GFR Calculation (90-130) mL/min Glucose (65-115) mg/dL Calculated Osmolal ity (285-295) mOsm/k g Calcium (8.5-10.5) mg/dL Total Bilirubin (0.15-1.2) mg/dL AST (0-32) U/L ALT (0-33) U/L Alkaline Phosphata se (35-105) IU/L Total Protein (6.6-8.7) g/dL Albumin (3.5-5.2) g/dL Globulin (1.3-4.6) g/dL Ser , Dipti i-Qnt mIU/mL Urine Color Yellow (Yellow) Urine Appearance Sl cloudy A (CLEAR) Urine pH 5 (5-7) Ur Specific Gravit y 1.015 (1.005-1.030) Urine Protein Neg (Negative) Urine Glucose (UA) Norm (Normal) Urine Ketones Negative (Negative) Urine Blood Neg (Negative) Urine Nitrate Negative (Negative) Urine Bilirubin Neg (Negative) Urine Urobilinogen Norm (Negative) mg/dL Ur Leukocyte Janice ase 2+ H (Negative) Urine RBC 0-4 H (0-2) /hpf Urine WBC 40-55 H (0-5) /hpf Ur Squamous Epith Cells 40-55 H (0-5) /hpf Amorphous Sediment 1+ /hpf Urine Bacteria 4+ H (NONE) /hpf Blood Type Rho(D) Type Antibody Screen Discharge Plan Discharge Patient Disposition: Home Clinical Impression: Threatened , Urinary tract infection Condition: Stable Prescriptions: New Macrobid 100 mg capsule 100 mg PO BID 5 Days Qty: 10 RF: 0 No Action PNV cmb#95-ferrous fumarate-FA [] 28 mg iron- 800 mcg Tablet 1 tab PO DAILY RF: 0 ibuprofen 800 mg Tablet 800 mg PO TID Qty: 45 RF: 0 Discharge Orders: Discharge ED (Routine); Ordered 11/07/20 Ordered By: Ronald Sauceda Referrals: Milton Mcintyre MD [Primary Care Provider] - Discharge Diet: Advance as tolerated Discharge Activity: Resume usual activity Patient Instructions: Threatened Miscarriage (ED), Opioid Safety Activity Restrictions/Additional Instructions: You have likely had a miscarriage. Please follow-up with your OB in 2 days to have a repeat quantitative hCG and repeat ultrasound. Return to the ER with worsening symptoms at any time if needed. Coding Level of Care Code ED School Cleaner for Chg Fwd Exam Comprehensive
[2020-11-07 22:11] LABS: Basophils # 0.1 10^3/uL (0.0-0.1); Basophils % 0.5 %; Eosinophils # 0.2 10^3/uL (0.0-0.8); Eosinophils % 2.1 %; Hematocrit 43.4 % (37.0-47.0); Hemoglobin 13.9 g/dL (11.5-15.3); Lymphocytes # 3.2 10^3/uL (0.8-4.8); Lymphocytes % 33.2 %; Mean Corpuscular Hemoglobin 26.4 pg (28.0-34.0); Mean Corpuscular Volume 82.5 fL (81-99); Mean Platelet Volume 10.5 fL (7.4-10.4); Monocytes # 0.8 10^3/uL (0.2-0.9); Monocytes % 7.9 %; Neutrophils # 5.42 10^3/uL (1.8-7.7); Nucleated Red Blood Cells % 0 %; Platelet Count 294 10^3/cmm (130-400); Red Blood Count 5.26 10^6/uL (4.1-5.3); Red Cell Distribution Width 13.7 % (12.1-15.1); White Blood Count 9.7 10^3/uL (4.0-10.0)
[2020-11-07 22:39] LABS: Alanine Aminotransferase 55 U/L (0-33); Albumin Level 4.6 g/dL (3.5-5.2); Alkaline Phosphatase 87 IU/L (35-105); Anion Gap 14.5 (5-19); Aspartate Amino Transferase 29 U/L (0-32); Blood Urea Nitrogen 5 mg/dL (6-20); Calcium 9.2 mg/dL (8.5-10.5); Carbon Dioxide 22 mmol/L (22-29); Chloride 104 mmol/L (98-107); Globulin 2.9 g/dL (1.3-4.6); Glomerular Filtration Rate 118.2 mL/min (90-130); Glucose 96 mg/dL (65-115); Osmolality Calculated 281 mOsm/kg (285-295); Potassium 3.5 mmol/L (3.5-5.1); Sodium 137 mmol/L (136-145); Total Bilirubin 0.3 mg/dL (0.15-1.2); Total Protein 7.5 g/dL (6.6-8.7)
[2020-11-07 22:40] LABS: Add Urine Microscopic? YES; Bilirubin Urine Neg (Negative); Blood Urine Neg (Negative); Glucose Urine UA Norm (Normal); Ketones Urine Negative (Negative); Leukocyte Esterase Urine 2+ (Negative); Nitrate Urine Negative (Negative); Protein Urine Neg (Negative); Specific Gravity, Urine 1.015 (1.005-1.030); Urine Color Yellow (Yellow); Urobilinogen Urine Norm (Negative); pH Urine 5 (5-7)
[2020-11-07 22:42] LABS: Add Urine Culture? No; Amorphous Sediment Urine 1+ /hpf; Bacteria Urine 4+ /hpf; RBC Urine 0-4 /hpf (0-2); Squamous Epithelial Cell Urine 40-55 /hpf (0-5); WBC Urine 40-55 /hpf (0-5)
[2020-11-07] MEDS: nitrofurantoin SR (BID) 100 mg Capsule PO (23:12)
[2020-11-07 23:40] VITALS: BP 131/70; PULSE 78; RESP 17; O2SAT 96
== END 2020-11-07 23:40 | disposition home or self-care (01) ==
PROVIDERS: Emergency Provider Family Medicine; PCP Family Medicine
DX: O20.0 Threatened abortion (principal); O23.41 Unspecified infection of urinary tract in pregnancy, first trimester; Z3A.01 Less than 8 weeks gestation of pregnancy
CPT/HCPCS: 76801; 76817; 80053; 81001; 84702; 85025; 86850; 86900; 99283

== ENCOUNTER 2021-02-12 14:17 | Emergency (ER) | payer MEDICAID, SELFPAY ==
[2021-02-12 14:32] VITALS: BP 125/83; PULSE 79; RESP 20; O2SAT 98; BMI 43.9
[2021-02-12 14:40] VITALS: BP 125/83; PULSE 88; RESP 18; TEMP 36.7
[2021-02-12 15:42] VITALS: BP 89/49; PULSE 84; RESP 16; O2SAT 97
[2021-02-12 15:42] LABS: Basophils % 0.2 %; Eosinophils # 0.2 10^3/uL (0.0-0.8); Eosinophils % 1.2 %; Hematocrit 38.2 % (37.0-47.0); Hemoglobin 12.3 g/dL (11.5-15.3); Lymphocytes # 2.2 10^3/uL (0.8-4.8); Lymphocytes % 17.8 %; Mean Corpuscular HGB Conc 32.2 g/dL (30.0-36.0); Mean Corpuscular Hemoglobin 26.7 pg (28.0-34.0); Mean Corpuscular Volume 82.9 fL (81-99); Mean Platelet Volume 10.6 fL (7.4-10.4); Monocytes # 0.9 10^3/uL (0.2-0.9); Monocytes % 7.6 %; Neutrophils # 9.03 10^3/uL (1.8-7.7); Neutrophils % 72.9 %; Nucleated Red Blood Cells % 0 %; Platelet Count 215 10^3/cmm (130-400); Red Blood Count 4.61 10^6/uL (4.1-5.3); White Blood Count 12.4 10^3/uL (4.0-10.0)
--- NOTE | 2021-02-12 15:43 | PC.NURSE ---
patient stated that her blood pressure normally running low. patient denied any dizziness at this timel
--- NOTE | 2021-02-12 15:58 | ED_ITS ---
HPI - General: Chief complaint: Abdominal Pain Stated complaint: SHARP PAINS ON R. SIDE OF UPPER ABD/BACK Time Seen by Provider: 02/12/21 15:21 History of Present Illness: HPI Narrative: at 18 weeks complicated by history of placenta previa and spontaneous at 7 weeks. Denies fevers chills chest pain admits to nausea no vomiting no dysuria no nausea vomiting no itching no rashes no altered mental status no vision changes no severe headaches no vaginal bleeding or discharge MD Complaint: abdominal pain Onset (ago): hour(s) (5) Pain Consistency: intermittent Location: other (Right upper quadrant radiates down her flank) Severity: moderate Quality: Aching and Sharp Radiation: flank Relieving factors: none Exacerbating factors: none Vaginal discharge: none Vaginal bleeding: none Date of Last Menstrual Period: 08/13/19 Patient : Yes Number of Weeks : 18 OB History - Current : no complications OB History - Previous Pregnancies: other (Placenta previa 1) care: followed by OB and previous ultrasound confirms IUP Associated symptoms: Reports no associated symptoms, abdominal pain and nausea; Deny headache(s), rash, seizures, short of breath, syncope, vaginal discharge, visual changes, vomiting, weakness or other Review of Systems Narrative: See HPI Card: Denies: syncope GI: Reports: abdominal pain and nausea; Denies: vomiting : Denies: vaginal discharge Neuro: Denies: headache(s) PFSH ED PFSH: Medical History (Updated 02/12/21 @ 16:46 by Joel Gomez MD) Endometriosis Surgical History H/O hand surgery Hx of cholecystectomy Social History Smoking and tobacco status: never smoked Female Reproductive History: Date of last menstrual period: 08/13/19 Physical Exam Const: COMMON NORMALS: no acute distress, patient oriented x3 and well nourished GENERAL APPEARANCE: cooperative, comfortable, well kempt and well developed HENMT: COMMON NORMALS: normocephalic and atraumatic HEAD & SCALP: normocephalic and atraumatic Eye: COMMON NORMALS: Equal, round and reactive pupils present and EOMs intact bilaterally PUPIL: Yes Equal, round and reactive pupils present Resp: COMMON NORMALS: normal respiratory effort Cardio: COMMON NORMALS: regular rate and regular rhythm RATE: regular rate RHYTHM: regular rhythm GI: COMMON NORMALS: Normal to inspection, nondistended, normoactive bowel sounds present, Soft to palpation, non-tender, No hepatosplenomegaly present, no masses and no bruits INSPECTION: Yes normal to inspection PALPATION: Yes Soft to palpation and Yes No hepatosplenomegaly present : OTHER: Deferred Extremity: COMMON NORMALS: full ROM and no joint enlargement Neuro: COMMON NORMALS: patient oriented x3 Psych: APPEARANCE: Yes well kempt Skin: COMMON NORMALS: no rashes or lesions noted GENERAL SKIN EXAM: no rashes or lesions noted Procedures Perimortem Number of Weeks : 18 Course ED course: heart tones 152 by Doppler Patient did well with Tylenol and Zofran for symptoms. Lab value shows a mild leukocytosis but no shift. Mild hyponatremia but otherwise no significant abnormalities that I feel would need either hospitalization or emergent consultation with OB. Urinalysis shows significant leukocyte esterase and bacteria as well as pyuria. We will go ahead and discharge her on Macrobid and Zofran for nausea Patient's vital signs are normal no signs and symptoms of sepsis or preeclampsia she is appropriate for discharge at this time Vital Signs: Vital signs: Vital Signs Temperature 98.1 F 02/12/21 14:40 Pulse Rate 89 02/12/21 16:06 Respiratory Rate 16 02/12/21 16:06 Blood Pressure 101/50 02/12/21 16:06 Pulse Oximetry 97 02/12/21 16:06 MDM - OB/Uterine Contractions MDM Narrative: Medical decision making narrative: Patient is a 30-year-old G4, P2 at 18 weeks confirmed by ultrasound. She is here with 5 hours of abdominal pain. Vital signs are normal as she is mildly hypotensive but states that this is normal for her. Does not have any signs or symptoms of preeclampsia. I will go ahead get basic labs on her looking for any sort of biliary complaints. She does not have a gallbladder but still could have PUPP. heart tones reassuring. No need for formal NST is she is previable Tylenol for pain and Zofran for nausea. Differential includes normal abdominal pain in kidney stones PUPPP Lab Data: Labs: Lab Results 02/12/21 02/12/2102/12/21 Range/Units 15:35 15:35 15:35 WBC 12.4 H (4.0-10.0) 10^3/ uL RBC 4.61 (4.1-5.3) 10^6/u L Hgb 12.3 (11.5-15.3) g/dL Hct 38.2 (37.0-47.0) % MCV 82.9 (81-99) fL MCH 26.7 L (28.0-34.0) pg MCHC 32.2 (30.0-36.0) g/dL RDW 15.0 (12.1-15.1) % Plt Count 215 (130-400) 10^3/c mm MPV 10.6 H (7.4-10.4) fL Neut % (Auto) 72.9 % Lymph % (Auto) 17.8 % [place] % (Auto) 7.6 % Eos % (Auto) 1.2 % Baso % (Auto) 0.2 % Neut # (Auto) 9.03 H (1.8-7.7) 10^3/u L Lymph # (Auto) 2.2 (0.8-4.8) 10^3/u L [place] # (Auto) 0.9 (0.2-0.9) 10^3/u L Eos # (Auto) 0.2 (0.0-0.8) 10^3/u L Baso # (Auto) 0.0 (0.0-0.1) 10^3/u L Nucleated RBC % (a uto) 0 % Nucleated RBCs # 0.0 /100WBC Sodium 133 L (136-145) mmol/L Potassium 3.8 (3.5-5.1) mmol/L Chloride 103 (98-107) mmol/L Carbon Dioxide 19 L (22-29) mmol/L Anion Gap 14.8 (5-19) BUN 5 L (6-20) mg/dL Creatinine 0.4 L (0.5-0.9) mg/dL GFR Calculation 188.7 H (90-130) mL/min Glucose 83 (65-115) mg/dL Calculated Osmolal ity 272 L (285-295) mOsm/k g Calcium 8.2 L (8.5-10.5) mg/dL Total Bilirubin 0.2 (0.15-1.2) mg/dL AST 10 (0-32) U/L ALT 7 (0-33) U/L Alkaline Phosphata se 74 (35-105) IU/L Total Protein 6.1 L (6.6-8.7) g/dL Albumin 3.3 L (3.5-5.2) g/dL Globulin 2.8 (1.3-4.6) g/dL Lipase 25 (13-60) U/L HCG, Qual Positive H (Negative) Discharge Plan Discharge Patient Disposition: Home Clinical Impression: Urinary tract infection affecting care of mother in second trimester, antepartum Condition: Stable Prescriptions: New nitrofurantoin monohyd/m-cryst [Macrobid] 100 mg capsule 100 mg PO BID 3 Days Qty: 6 RF: 0 ondansetron HCl [Zofran] 4 mg tablet 4 mg PO Q8H 5 Days Qty: 15 RF: 0 No Action PNV cmb#95-ferrous fumarate-FA [] 28 mg iron- 800 mcg Tablet 1 tab PO DAILY RF: 0 ibuprofen 800 mg Tablet 800 mg PO TID Qty: 45 RF: 0 Discharge Orders: Discharge ED (Routine); Ordered 02/12/21 Ordered By: Joel Gomez Referrals: Milton Mcintyre MD [Primary Care Provider] - (as scheduled on sunday) Discharge Activity: Resume usual activity Patient Instructions: Urinary Tract Infection in Women (ED) Coding Level of Care Code ED Department Director for Chg Fwd Exam Comprehensive
[2021-02-12] MEDS: ondansetron 2 mg/ML SDV 2 mL 4 MG IVP (16:03)
[2021-02-12 16:06] VITALS: BP 101/50; PULSE 89; RESP 16; O2SAT 97
[2021-02-12 16:13] LABS: HCG, Serum Qual Positive (Negative)
[2021-02-12 16:21] LABS: Alanine Aminotransferase 7 U/L (0-33); Albumin Level 3.3 g/dL (3.5-5.2); Alkaline Phosphatase 74 IU/L (35-105); Anion Gap 14.8 (5-19); Aspartate Amino Transferase 10 U/L (0-32); Blood Urea Nitrogen 5 mg/dL (6-20); Calcium 8.2 mg/dL (8.5-10.5); Carbon Dioxide 19 mmol/L (22-29); Chloride 103 mmol/L (98-107); Globulin 2.8 g/dL (1.3-4.6); Glomerular Filtration Rate 188.7 mL/min (90-130); Glucose 83 mg/dL (65-115); Lipase 25 U/L (13-60); Osmolality Calculated 272 mOsm/kg (285-295); Potassium 3.8 mmol/L (3.5-5.1); Sodium 133 mmol/L (136-145); Total Bilirubin 0.2 mg/dL (0.15-1.2); Total Protein 6.1 g/dL (6.6-8.7)
[2021-02-12] MEDS: acetaminophen 500 mg Tablet 1000 MG PO (16:25)
[2021-02-12 17:37] VITALS: BP 115/40; PULSE 67; RESP 16; O2SAT 100
[2021-02-12 18:22] LABS: Add Urine Microscopic? YES; Bilirubin Urine Neg (Negative); Blood Urine Neg (Negative); Glucose Urine UA 2+ (Normal); Ketones Urine Negative (Negative); Leukocyte Esterase Urine Negative (Negative); Nitrate Urine Negative (Negative); Protein Urine Neg (Negative); Specific Gravity, Urine 1.025 (1.005-1.030); Urine Appearance Cloudy (CLEAR); Urine Color Yellow (Yellow); Urobilinogen Urine Norm (Negative); pH Urine 5 (5-7)
[2021-02-12 18:27] LABS: Add Urine Culture? No; Bacteria Urine 2+ /hpf; Mucus Urine 2+ /hpf; Squamous Epithelial Cell Urine 15-25 /hpf (0-5)
== END 2021-02-12 17:39 | disposition home or self-care (01) ==
PROVIDERS: Physician Assistant; Emergency Provider Family Medicine; PCP Family Medicine
DX: O23.42 Unspecified infection of urinary tract in pregnancy, second trimester (principal); Z3A.18 18 weeks gestation of pregnancy
CPT/HCPCS: 80053; 81001; 83690; 84703; 85025; 96374; 99284; J2405

== ENCOUNTER 2021-03-15 17:57 | Outpatient (CLI) | payer MEDICAID, SELFPAY ==
[2021-03-15 18:16] VITALS: BP 113/59; PULSE 97
[2021-03-15 18:32] VITALS: BP 100/50; PULSE 91
[2021-03-15 18:46] VITALS: BP 104/54; PULSE 90
[2021-03-15 19:01] VITALS: BP 99/54; PULSE 97; RESP 17
[2021-03-15 19:30] VITALS: BMI 45.8
== END 2021-03-15 19:15 | disposition home or self-care (01) ==
LOC: OPOB 18:01 → OBGYN 18:04
PROVIDERS: PCP Family Medicine; Visit Provider Family Medicine
DX: O16.9 Unspecified maternal hypertension, unspecified trimester (principal); Z3A.00 Weeks of gestation of pregnancy not specified
CPT/HCPCS: 99211

== ENCOUNTER 2021-04-12 20:36 | Outpatient (CLI) | payer MEDICAID, SELFPAY ==
[2021-04-12 20:51] VITALS: BP 132/69; PULSE 80
[2021-04-12 21:19] VITALS: BMI 46.0
[2021-04-12 21:21] VITALS: BP 116/56; PULSE 73
[2021-04-12] MEDS: acetaminophen 500 mg Tablet 1000 MG PO (21:31)
[2021-04-12] MEDS: cyclobenzaprine 10 mg Tablet 5 MG PO (21:31)
[2021-04-12 21:51] VITALS: BP 120/59; PULSE 67
[2021-04-12 22:17] LABS: Bacteria Urine 2+ /hpf; Bilirubin Urine Neg (Negative); Blood Urine Neg (Negative); Glucose Urine UA Norm (Normal); Ketones Urine Negative (Negative); Leukocyte Esterase Urine Trace (Negative); Mucus Urine 2+ /hpf; Nitrate Urine Negative (Negative); Protein Urine Neg (Negative); Squamous Epithelial Cell Urine 15-25 /hpf (0-5); Urine Appearance Clear (CLEAR); Urine Color Yellow (Yellow); Urobilinogen Urine Norm (Negative); WBC Urine 0-4 /hpf (0-5); pH Urine 5 (5-7)
[2021-04-12 22:18] LABS: Add Urine Culture? No
[2021-04-12 22:25] VITALS: BP 97/59; PULSE 64
[2021-04-12 22:39] VITALS: BP 97/59; PULSE 64; RESP 16; TEMP 36.6
== END 2021-04-12 22:51 | disposition home or self-care (01) ==
LOC: OPOB 20:37 → OBGYN 20:38
PROVIDERS: PCP Family Medicine; Visit Provider Family Medicine
DX: O26.899 Other specified pregnancy related conditions, unspecified trimester (principal); Z3A.00 Weeks of gestation of pregnancy not specified; R10.9 Unspecified abdominal pain
CPT/HCPCS: 59025; 81001; 99211

== ENCOUNTER 2021-05-04 14:56 | Outpatient (CLI) | payer MEDICAID, SELFPAY ==
[2021-05-04] VITALS (14 sets, daily range): BP systolic 98–176; BP diastolic 46–89; PULSE 66–90; TEMP 36.1; O2SAT 92–100; BMI 45.6
[2021-05-04 16:23] LABS: Actim Prom Negative
[2021-05-04] MEDS: terbutaline 1 mg/mL INJ 0.25 MG SUBCUT (16:40)
[2021-05-04 17:29] LABS: Urine Appearance Cloudy (CLEAR); Urine Color Straw (Yellow)
[2021-05-04 17:30] LABS: Add Urine Microscopic? YES; Bacteria Urine 3+ /hpf; Bilirubin Urine 1+ (Negative); Blood Urine Neg (Negative); Glucose Urine UA Norm (Normal); Ketones Urine 1+ (Negative); Leukocyte Esterase Urine 2+ (Negative); Nitrate Urine Negative (Negative); Protein Urine Trace (Negative); RBC Urine 0-4 /hpf (0-2); Specific Gravity, Urine 1.015 (1.005-1.030); Squamous Epithelial Cell Urine TOO NUMEROUS TO CNT /hpf (0-5); Urobilinogen Urine Norm (Negative); WBC Urine 15-25 /hpf (0-5); pH Urine 6.5 (5-7)
[2021-05-04 17:31] LABS: Add Urine Culture? No; Mucus Urine 2+ /hpf
== END 2021-05-04 17:35 | disposition home or self-care (01) ==
LOC: OPOB 14:59 → OBGYN 15:00
PROVIDERS: PCP Family Medicine; Visit Provider Family Medicine
DX: O99.891 Other specified diseases and conditions complicating pregnancy (principal); N89.8 Other specified noninflammatory disorders of vagina
CPT/HCPCS: 59025; 81001; 84112; 96372; 99211; J3105

== ENCOUNTER 2021-05-12 21:22 | Outpatient (CLI) | payer MEDICAID, SELFPAY ==
[2021-05-12 21:22] VITALS: RESP 17; BMI 46.5
[2021-05-12 21:29] VITALS: BP 116/78; PULSE 98
[2021-05-12 21:58] VITALS: TEMP 36.6
[2021-05-12 22:00] VITALS: BP 119/59; PULSE 86
[2021-05-12 22:14] VITALS: BP 119/59; PULSE 86; RESP 18; TEMP 36.6
== END 2021-05-12 22:14 | disposition home or self-care (01) ==
LOC: OPOB 21:24 → OBGYN 21:25
PROVIDERS: PCP Family Medicine; Visit Provider Family Medicine
DX: O99.891 Other specified diseases and conditions complicating pregnancy (principal); M54.50 Low back pain, unspecified
CPT/HCPCS: 59025; 99211

== ENCOUNTER 2021-05-20 11:25 | Outpatient (CLI) | payer MEDICAID, SELFPAY ==
[2021-05-20 11:48] VITALS: BP 156/80; PULSE 87
[2021-05-20 12:04] VITALS: BP 134/66; PULSE 79
[2021-05-20 12:06] VITALS: BMI 46.0
[2021-05-20 12:18] VITALS: BP 123/68; PULSE 88
== END 2021-05-20 12:29 | disposition home or self-care (01) ==
LOC: OPOB 11:35 → OBGYN 11:37
PROVIDERS: PCP Family Medicine; Visit Provider Family Medicine
DX: O46.90 Antepartum hemorrhage, unspecified, unspecified trimester (principal)
CPT/HCPCS: 59025; 99211

== ENCOUNTER 2021-05-25 09:10 | Outpatient (CLI) | payer MEDICAID, SELFPAY ==
[2021-05-25 09:32] VITALS: RESP 18
[2021-05-25 09:33] VITALS: BMI 46.0
[2021-05-25 09:37] VITALS: BP 148/89; PULSE 84
[2021-05-25 09:54] VITALS: BP 114/56; PULSE 76
== END 2021-05-25 10:25 | disposition home or self-care (01) ==
LOC: OPOB 09:27 → OBGYN 09:29
PROVIDERS: PCP Family Medicine; Visit Provider Family Medicine
DX: O46.90 Antepartum hemorrhage, unspecified, unspecified trimester (principal); O47.9 False labor, unspecified
CPT/HCPCS: 59025; 99211

== ENCOUNTER 2021-06-11 22:45 | Outpatient (CLI) | payer MEDICAID, SELFPAY ==
[2021-06-11 22:45] VITALS: BMI 46.3
[2021-06-11 23:01] VITALS: BP 103/71; PULSE 106; TEMP 36.8
[2021-06-11 23:24] VITALS: BP 151/70; PULSE 74
[2021-06-11 23:39] VITALS: BP 155/76; PULSE 78
[2021-06-11 23:54] VITALS: BP 121/56; PULSE 76
[2021-06-12 00:09] VITALS: BP 146/77; PULSE 73
[2021-06-12 00:24] VITALS: BP 138/70; PULSE 75
[2021-06-12 00:39] VITALS: BP 148/76; PULSE 82
[2021-06-12 00:45] VITALS: BP 148/76; PULSE 82; TEMP 36.7
== END 2021-06-12 00:50 | disposition home or self-care (01) ==
LOC: OPOB 22:45 → OBGYN 22:46
PROVIDERS: PCP Family Medicine; Visit Provider Family Medicine
DX: O99.891 Other specified diseases and conditions complicating pregnancy (principal); N89.8 Other specified noninflammatory disorders of vagina
CPT/HCPCS: 59025; 83986; 99211

== ENCOUNTER 2021-06-19 08:53 | Outpatient (CLI) | payer MEDICAID, SELFPAY ==
[2021-06-19 09:00] VITALS: BMI 46.1
[2021-06-19 09:07] VITALS: BP 144/79; PULSE 81
[2021-06-19 09:12] VITALS: TEMP 36.2
[2021-06-19 09:24] VITALS: RESP 18; TEMP 36.2
[2021-06-19 09:28] VITALS: BP 135/72; PULSE 88
[2021-06-19 09:30] VITALS: BP 138/75; PULSE 69
== END 2021-06-19 09:44 | disposition home or self-care (01) ==
LOC: OPOB 08:56 → OBGYN 08:57
PROVIDERS: PCP Family Medicine; Visit Provider Family Medicine
DX: O47.9 False labor, unspecified (principal); M54.9 Dorsalgia, unspecified
CPT/HCPCS: 59025; 99211

== ENCOUNTER 2021-06-21 23:35 | Inpatient (IN) | payer MEDICAID, SELFPAY ==
[2021-06-21] VITALS (17 sets, daily range): BP systolic 76–148; BP diastolic 36–89; PULSE 61–89; RESP 17; BMI 45.8
[2021-06-21 21:20] LABS: Nitrazine Paper, PH Negative
[2021-06-22] VITALS (87 sets, daily range): BP systolic 88–179; BP diastolic 47–87; PULSE 49–98; RESP 14–18; TEMP 36.4–36.7; O2SAT 89–100
[2021-06-22] MEDS: lactated ringers 1,000 ML 999 ML IV ×3 (00:44→13:59)
[2021-06-22 00:46] LABS: Amphetamines Screen Urine Negative (Negative); Barbiturates Screen Urine Negative (Negative); Benzodiazepines Screen Urine Negative (Negative); Cocaine Screen Urine Negative (Negative); Opiate Screen Urine Negative (Negative); PCP Screen Urine Negative (Negative); THC Screen Urine Negative (Negative)
[2021-06-22 00:46] LABS: Basophils # 0.1 10^3/uL (0.0-0.1); Basophils % 0.5 %; Eosinophils # 0.2 10^3/uL (0.0-0.8); Eosinophils % 1.6 %; Hemoglobin 12.4 g/dL (11.5-15.3); Lymphocytes # 2.9 10^3/uL (0.8-4.8); Lymphocytes % 27.4 %; Mean Corpuscular HGB Conc 32.6 g/dL (30.0-36.0); Mean Corpuscular Hemoglobin 25.6 pg (28.0-34.0); Mean Corpuscular Volume 78.5 fl (81-99); Mean Platelet Volume 11.4 fL (7.4-10.4); Monocytes # 0.7 10^3/uL (0.2-0.9); Neutrophils # 6.63 10^3/uL (1.8-7.7); Neutrophils % 63.1 %; Nucleated Red Blood Cells % 0 %; Platelet Count 236 10^3/cmm (130-400); Red Blood Count 4.84 10^6/uL (4.1-5.3); Red Cell Distribution Width 13.3 % (12.1-15.1); White Blood Count 10.5 10^3/uL (4.0-10.0)
[2021-06-22] MEDS: fentaNYL 50 mcg/mL INJ 2mL IVP (00:49)
--- NOTE | 2021-06-22 02:13 | P.ANESASSM_ITS ---
Pre-Anesthetic Assessment Pre-Anesthetic Assessment: Height/Weight: Height 1.68 m Weight 128.82 kg Pulse Resp BP Pulse Ox 74 15 110/51 100 06/22/21 02:09 06/22/21 00:49 06/22/21 02:09 06/22/21 02:04 Preop Diagnosis: Labor pain Proposed Procedure: Labor Epidural Familial anesthetic complications: none Was Beta Javid taken within 24 hours: N/A Was Clonidine taken within 24 hours: N/A Last intake: 06/21/21 1600 meal, current clear liquids Social: Social History: Tobacco Comment: Patient vapes Exam: Pre-Anes Outpt Exam: alert and oriented x 3 Airway: Submandibular: WNL Cervical ROM: WNL MP: 2 Dentition: Full History/ROS: No significant history except as noted Pulmonary: Pulmonary: None reported CV/HEM: CV/HEM: None reported : : None reported Hepatic: Hepatic: None reported GI: GI: None reported Metabolic: Metabolic: Morbid obesity Musc/skel: Musc/skel: None reported Anesthetic Plan: ASA status: 3 Anesthesia: Eval. for regional block Risk of > 500 ml blood loss (7ml/kg in children): No Meds/Allergies Current Medications: Current Medications Generic Name Dose Route Start Last Admin Trade Name Freq PRN Reason Stop Dose Admin Fentanyl 25 - 100 mcg 06/22/21 00:08 06/22/21 00:49 Fentanyl 50 Mcg/ Ml Inj 2ml IVP 25 mcg Q1H PRN Administration SEVERE PAIN Lactated Ringer's 1,000 mls @ 999 m ls/hr 06/22/21 00:29 06/22/21 00:44 Lactated Ringers IV 999 mls/hr .Q1H1M PRN Administration See label comment s PFSH Anesthesia PFSH: Medical History (Updated 02/20/21 @ 00:01 by ) Endometriosis Surgical History H/O hand surgery Hx of cholecystectomy Social History Smoking and tobacco status: never smoked Female Reproductive History: Date of last menstrual period: 08/13/19 : 4 Data Anesthesia CBC & Chem 7: 06/22/21 00:12 Other Labs: Laboratory Results - last 48 hr 06/22/21 06/22/21 00:00 00:12 WBC 10.5 H RBC 4.84 Hgb 12.4 Hct 38.0 MCV 78.5 L MCH 25.6 L MCHC 32.6 RDW 13.3 Plt Count 236 MPV 11.4 H Neut % (Auto) 63.1 Lymph % (Auto) 27.4 [place] % (Auto) 7.0 Eos % (Auto) 1.6 Baso % (Auto) 0.5 Neut # (Auto) 6.63 Lymph # (Auto) 2.9 [place] # (Auto) 0.7 Eos # (Auto) 0.2 Baso # (Auto) 0.1 Nucleated RBC % (auto) 0 Nucleated RBCs # 0.0 Urine Opiates Screen Negative Ur Barbiturates Screen Negative Ur Phencyclidine Scrn Negative Ur Amphetamines Screen Negative U Benzodiazepines Scrn Negative Urine Cocaine Screen Negative U Marijuana (THC) Screen Negative Cardiac Studies: No Data to Display
[2021-06-22] MEDS: dextrose 5%-lactated ringers 1,000 ML 125 ML IV (02:42)
--- NOTE | 2021-06-22 07:34 | PM.OPHPUD ---
Labor & Delivery H&P Update Date of Procedure: June 22, 2021 Date H&P Performed: 06/20/21 H&P update information: I have reviewed H&P completed within last 30 days and I have examined patient prior to procedure Changes to previous documentation: On my examination the patient was 8 cm dilated 80% effaced. Otherwise no changes Admission Diagnosis: A 4 para 2-0-1-2 at 37 weeks and 4 days presenting in active labor. Preop diagnosis: Labor pain Planned procedure: Spontaneous vaginal delivery
[2021-06-22] MEDS: oxytocin 30 UNIT/500 ML BAG 600 UNIT IV (09:29)
--- NOTE | 2021-06-22 09:40 | PM.DELIVERY ---
Delivery Note: Date of delivery: June 22, 2021 Pre-delivery diagnoses: 1. 30-year-old 4 para 2-0-1-2 at 37 weeks estimated gestational age presenting in active labor Post-delivery diagnoses: Status post spontaneous vaginal delivery. Procedure: Spontaneous vaginal delivery. Op report anesthesia: Epidural Delivering Physician: Milton Mcintyre Estimated blood loss (mL): 75 Pre-Delivery Course: In active labor. She was given an epidural. An episiotomy was performed. She progressed to complete without difficulty. Delivery: DELIVERY: The patient progressed to complete without difficulty. She delivered a male with a weight of 7 pounds 3 ounces with Apgars of 9, 10. The baby was delivered from the RICA position and placed on the mother's abdomen. The cord was then clamped and cut 1 minute after delivery. There was no nuchal cord. There was no meconium. The placenta and 3 vessel cord were delivered intact shortly thereafter. The perineum and vaginal vault were carefully examined. No lacerations were noted. Both the mother and the baby were in stable condition. Post-Delivery Status: Good A&P Assessment and plan (1) 37 weeks gestation of : Status: Acute (2) Spontaneous vaginal delivery: Status: Resolved (3) Sterilization consult: Status: Acute Coding Level of Care Code Acute Telecasting Technician for Chg Fwd Diagnoses 37 weeks gestation of Z3A.37 Spontaneous vaginal delivery O80 Sterilization consult Z30.09
--- NOTE | 2021-06-22 10:20 | PC.NURSE ---
note: This mom has large breasts, the nipples are average to large, compressible and elastic. Helped her to position in a football hold. Baby latched well and quickly. Mom had difficulty with milk volume with her last baby. Discussed breast massage for hormone stimulation, and hand expression. Gave resources for [facility] website. Encouraged frequent feedings of 10 or more per 24 hour day, lasting 10 min or longer (no limit on the longer). Provided Understanding book and contact information.
--- NOTE | 2021-06-22 12:37 | ANE.PACU2 ---
Inpatient post-anesthesia follow up: Airway intact: Yes Vital signs: Temperature 97.7 F Pulse Rate 86 Respiratory Rate 16 Blood Pressure 143/62 Pulse Oximetry 99 Oxygen Delivery Me thod Room Air Oxygen Flow Rate Fraction of Inspir ed Oxygen Hydration adequate: Yes Nausea and vomiting: No Pain level: 2 Mental status: Baseline
[2021-06-22 14:01] LABS: Coronavirus Test Green County Not Detected
[2021-06-22] MEDS: lanolin oint 7 gm 1 APPLIC TOPICAL (14:52)
[2021-06-22] MEDS: benzocaine-menthol 78 gm Canister 1 SPRAY TOPICAL (14:52)
[2021-06-22] MEDS: ibuprofen 800 mg tablet PO ×2 (14:52→21:56)
--- NOTE | 2021-06-22 14:53 | PC.NURSE ---
Patient states she drank caffeine and it helped her head.
[2021-06-22] MEDS: docusate sodium 100 mg Capsule PO (18:29)
[2021-06-22] MEDS: HYDROcodone-acetaminophen 5-325 mg Tablet PO (18:29)
[2021-06-23] VITALS (19 sets, daily range): BP systolic 113–138; BP diastolic 52–93; PULSE 48–70; RESP 13–20; TEMP 36.2–36.8; O2SAT 92–98
[2021-06-23] MEDS: HYDROcodone-acetaminophen 5-325 mg Tablet PO ×3 (00:59→19:17)
[2021-06-23 01:25] LABS: Hematocrit 32.7 % (37.0-47.0); Hemoglobin 10.6 g/dL (11.5-15.3); Mean Corpuscular HGB Conc 32.4 g/dL (30.0-36.0); Mean Corpuscular Hemoglobin 25.7 pg (28.0-34.0); Mean Corpuscular Volume 79.4 fl (81-99); Mean Platelet Volume 11.1 fL (7.4-10.4); Platelet Count 209 10^3/cmm (130-400); Red Blood Count 4.12 10^6/uL (4.1-5.3); Red Cell Distribution Width 13.5 % (12.1-15.1); White Blood Count 9.7 10^3/uL (4.0-10.0)
--- NOTE | 2021-06-23 02:23 | PM.OBGYDC ---
Discharge Providers PROPERTY AND SUPPLY OFFICER Date of Admission: 06/21/21 23:35 Date of Discharge: 07/06/21 Attending Provider at Admission: Milton Mcintyre MD Attending Provider at Discharge: Milton Mcintyre MD Primary Care Provider: Milton Mcintyre MD Diagnoses at Discharge Discharge Diagnosis (1) 37 weeks gestation of : Status: Resolved (2) Spontaneous vaginal delivery: Status: Resolved (3) Sterilization consult: Status: Resolved Reason for Visit Reason for Visit: leaking fluids Brief History: Contractions Hospital Course Hospital Course The patient presented to the hospital having contractions and concern about leaking fluid. She was found to be nitrazine negative. But she made cervical change with her contractions. An epidural was placed. An amniotomy was performed. She progressed to complete and had an unremarkable delivery of a healthy appearing male infant. Her course was relatively unremarkable. She breast-fed well. Her bleeding was minimal. Her pain was well controlled. At one point she did express concern that she might be having blues because she cried several times after the baby was born. We discussed starting her on medication, she decided not to do that at this time. A tubal ligation was performed on the morning of her discharge. There were no complications. Information Peripartum Data: Delivery Method: Vaginal Physical Exam Narrative: EXAM NARRATIVE: The patient is alert. She appears comfortable. Her heart has a regular rate and rhythm with no murmurs appreciated. Lungs are clear to auscultation bilaterally. Her fundus is firm and below the umbilicus. Urinary Catheter Management^: Latex Free: Cath Placed During This Visit: yes, but has since been removed by the nurse Reason for Continuing Indwelling Catheter: Required Immobilization for Trauma or Surgery or Anesthesia Urinary Catheter Date of Insertion: 06/22/21 Urinary Catheter Time of Insertion: 03:00 Date Urinary Catheter Removed: 06/22/21 Time Urinary Catheter Discontinued: 09:20 Discharge Data Data Completed and Pending: Labs from last 24 hours 06/23/21 06/22/21 00:54 01:10 WBC 9.7 RBC 4.12 Hgb 10.6 L Hct 32.7 L MCV 79.4 L MCH 25.7 L MCHC 32.4 RDW 13.5 Plt Count 209 MPV 11.1 H Nasal/Oral COVID-1 9 PCR Not detected Vitals: Last Vital Signs Temp 98.1 F 06/22/21 23:30 Pulse 62 06/22/21 23:30 Resp 18 06/22/21 17:30 BP 124/77 06/22/21 23:30 Pulse Ox 97 06/22/21 23:30 Discharge Plan Discharge Patient Disposition: Home Condition: Stable Prescriptions: New ibuprofen 800 mg Tablet 800 mg PO TID Qty: 45 RF: 0 hydrocodone-acetaminophen 5-325 mg Tablet 1 tab PO Q6H PRN (Reason: Moderate To Severe Pain) Qty: 20 RF: 0 Continued PNV cmb#[id number]-ferrous fumarate-FA [] 28 mg iron- 800 mcg Tablet 1 tab PO DAILY RF: 0 Discharge Orders: Discharge Order (Routine); Ordered 06/23/21 Ordered By: Milton Mcintyre Referrals: Milton Mcintyre MD [Primary Care Provider] - 06/28/21 9:45 am (Your 1 week incision check is scheduled for 06/28/21 @9:45. ) Discharge Diet: Usual diet Discharge Activity: Limit activity as instructed Patient Instructions: Depression (DC), Bleeding (DC), Preeclampsia and Eclampsia After Delivery (GEN), Tubal Ligation (DC), OB Discharge Report, OB Food/Drug Interaction Guide, Opioid Safety, OB Home Care, OB Vaginal Deliveries Discharge Attestations PROPERTY AND SUPPLY OFFICER Time Spent in Discharge Care*: greater than 30 min Specific Discharge Activities: Specific discharge activities: educating patient Coding Level of Care Code Acute Public Relations Player for Chg Fwd Diagnoses 37 weeks gestation of Z3A.37 Spontaneous vaginal delivery O80 Sterilization consult Z30.09
--- NOTE | 2021-06-23 06:57 | ANES.PREANE2 ---
Pre-Anesthetic Assessment Pre-Anesthetic Assessment: Height/Weight: Height 1.68 m Weight 128.82 kg Temp Pulse Resp BP Pulse Ox 97.6 F 60 18 127/52 98 06/23/21 06:28 06/23/21 03:50 06/23/21 06:28 06/23/21 06:28 06/23/21 06:28 Preop Diagnosis: Labor pain Proposed Procedure: Operation Date: 06/23/21 07:15 Proposed Procedures p Bilateral Tubal Ligation(Not Applicable) - Milton Mcintyre MD Was Beta Javid taken within 24 hours: N/A Was Clonidine taken within 24 hours: N/A Social: Social History: No alcohol and No tobacco Exam: Pre-Anes Outpt Exam: alert, oriented x 3, clear to auscultation bilaterally and regular rate & rhythm Airway: Submandibular: WNL Cervical ROM: WNL MP: 2 Dentition: Full History/ROS: No significant history except as noted Metabolic: Metabolic: Morbid obesity Anesthetic Plan: ASA status: 2 Anesthesia: General Risk of > 500 ml blood loss (7ml/kg in children): No Meds/Allergies Current Medications: Current Medications Generic Name Dose Route Start Last Admin Trade Name Freq PRN Reason Stop Dose Admin Hydrocodone Bitart /Acetaminophen 1 - 2 tab 06/22/21 11:34 06/23/21 00:59 Hydrocodone-Acet aminophen 5-325 Mg Tablet PO 1 tab Q6H PRN Administration MODERATE TO SEVER E PAIN Benzocaine 1 spray 06/22/21 11:34 06/22/21 14:52 Benzocaine-Menth ol 78 Gm Canister TOPICAL 1 can PRN PRN Administration PAIN Docusate Sodium 100 mg 06/22/21 18:00 06/22/21 18:29 Docusate Sodium 100 Mg Capsule PO 100 mg BID GARRY Administration Ibuprofen 800 mg 06/22/21 15:00 06/22/21 21:56 Ibuprofen 800 Mg Tablet PO 800 mg TID GARRY Administration Lanolin 1 applic 06/22/21 11:34 06/22/21 14:52 Lanolin Oint 7 G m TOPICAL 1 tube PRN PRN Administration DRYNESS PFSH Anesthesia PFSH: Medical History (Updated 06/22/21 @ 09:41 by Milton Mcintyre MD) Endometriosis Surgical History H/O hand surgery Hx of cholecystectomy Social History Smoking and tobacco status: never smoked Female Reproductive History: Date of last menstrual period: 08/13/19 : 4 Data Anesthesia CBC & Chem 7: 06/23/21 00:54 Other Labs: Laboratory Results - last 48 hr 06/22/21 06/22/21 06/22/21 00:00 00:12 01:10 WBC 10.5 H RBC 4.84 Hgb 12.4 Hct 38.0 MCV 78.5 L MCH 25.6 L MCHC 32.6 RDW 13.3 Plt Count 236 MPV 11.4 H Neut % (Auto) 63.1 Lymph % (Auto) 27.4 [place] % (Auto) 7.0 Eos % (Auto) 1.6 Baso % (Auto) 0.5 Neut # (Auto) 6.63 Lymph # (Auto) 2.9 [place] # (Auto) 0.7 Eos # (Auto) 0.2 Baso # (Auto) 0.1 Nucleated RBC % (auto) 0 Nucleated RBCs # 0.0 Urine Opiates Screen Negative Ur Barbiturates Screen Negative Ur Phencyclidine Scrn Negative Ur Amphetamines Screen Negative U Benzodiazepines Scrn Negative Urine Cocaine Screen Negative U Marijuana (THC) Screen Negative Nasal/Oral COVID-19 PCR Not detected 06/23/21 00:54 WBC 9.7 RBC 4.12 Hgb 10.6 L Hct 32.7 L MCV 79.4 L MCH 25.7 L MCHC 32.4 RDW 13.5 Plt Count 209 MPV 11.1 H Neut % (Auto) Lymph % (Auto) [place] % (Auto) Eos % (Auto) Baso % (Auto) Neut # (Auto) Lymph # (Auto) [place] # (Auto) Eos # (Auto) Baso # (Auto) Nucleated RBC % (auto) Nucleated RBCs # Urine Opiates Screen Ur Barbiturates Screen Ur Phencyclidine Scrn Ur Amphetamines Screen U Benzodiazepines Scrn Urine Cocaine Screen U Marijuana (THC) Screen Nasal/Oral COVID-19 PCR Cardiac Studies: No Data to Display
[2021-06-23] MEDS: sodium chloride 0.9% 1,000 ML 30 ML IV (07:25)
--- NOTE | 2021-06-23 07:28 | ANES.PROC ---
Anesthesia Procedures Procedure/Date: 06/22/21 labor epidural Procedure Narrative: SHERLEY at 9 cm catheter threaded to 15 cm
--- NOTE | 2021-06-23 08:21 | P.OP_ITS ---
Operative Report Date of procedure: June 23, 2021 Pre-op Diagnosis: female desiring sterilization Post-op diagnosis: same Procedure Done: minilaparotomy bilateral tubal ligation using a modified Tiffanie technique Specimens removed/disposition: Bilateral fallopian tube segments with the right segment being tagged. Pathology: other Pathology: Bilateral fallopian tube segments with the right segment being tagged Surgeon: Milton Mcintyre Anesthesia: General Estimated blood loss (mL): 5 Complications: None Condition: stable Disposition: floor (OB) Brief History: The patient is a multigravida female who desires sterilization. We had discussed the alternatives and risks of the tubal ligation during her second trimester. We discussed the risks of bleeding, infection, damage intra-abdominal organs. We also discussed the 1-200 chance of becoming after a successful tubal ligation. She acknowledged all these risks and wishes to proceed. We once again discussed those again during this hospitalization and she once again reiterated that she understood the risks and wishes to proceed. Procedure: The patient was brought back to the operating room where anesthesia was found to be adequate. 10 mL of 0.5% bupivacaine was then used to pre- anesthetize the area just inferior to the umbilicus. A #15 blade was then used to make a 3 cm transverse incision just inferior to the umbilicus. I then dissected down to the underlying subcutaneous tissue until arriving at the fascia. The fascia was then nicked with the scalpel. The fascial incision was extended manually. I identified the fundus of the uterus and followed it to the left fallopian tube. The fallopian tube was then followed to the fimbria. The tube was then ligated, cut, and cauterized in a modified Tiffanie fashion using 0 chromic. The right fallopian tube was then identified and followed through to the fimbria. It was ligated, cut, and cauterized in similar fashion. The right fallopian tube was tagged. Both fallopian tubes had excellent hemostasis. The fascia was reapproximated using 0 Vicryl in running stitch. The subcutaneous tissue was carefully examined and no further bleeding was noted. The skin was then reapproximated using 4-0 Vicryl in a running subcuticular stitch. A sterile dressing was placed. All counts were correct x2. The patient was moved to the recovery room in stable condition.
[2021-06-23] MEDS: fentaNYL 50 mcg/mL INJ 2mL IVP ×2 (08:42→08:47)
--- NOTE | 2021-06-23 08:43 | P.PCN_ITS ---
PACU note PACU note: VSS, Good respiratory effort, report to KIER DRIER Post-Anesthesia Exam: awake
--- NOTE | 2021-06-23 08:43 | PM.PACU ---
PACU note PACU note: VSS, Good respiratory effort, report to EMPLOYMENT OFFICER Post-Anesthesia Exam: awake
--- NOTE | 2021-06-23 09:20 | PC.NURSE ---
This nurse received this pt from pacu at 0920 pt heart rate was 45, SPo2 @ of 92%, This nurse placed nasal cannula at 2L/min, started a bolus in the right IV site, site infiltrated. This nurse started an 18g to the left hand in 1 attempt. Started fluid bolus in the left IV site. blood pressures taken every 30 min. This nurse called Anesthesia @ 0942 to come and assess this pt. notified at 0940. orders to continue to monitor pt.
[2021-06-23] MEDS: sodium chloride 0.9% 1,000 ML 999 ML (09:39)
--- NOTE | 2021-06-23 14:14 | ANE.PACU2 ---
Inpatient post-anesthesia follow up: Airway intact: Yes Vital signs: Temperature 97.1 F Pulse Rate 53 Respiratory Rate 17 Blood Pressure 121/54 Pulse Oximetry 93 Oxygen Delivery Me thod Room Air Oxygen Flow Rate 6 Fraction of Inspir ed Oxygen Hydration adequate: Yes Nausea and vomiting: No Pain level: 2 Mental status: Baseline Additional Comments: There was some question of PDPH following epidural for labor, her sxms were suggestive of dural puncture, encouraged fluids and caffeine which patient has done and h/a nearly gone.
[2021-06-23] MEDS: ibuprofen 800 mg tablet PO (16:42)
== END 2021-06-23 19:45 | disposition home or self-care (01) | DRG 798 ==
LOC: OPOB 23:36 → OBGYN 23:36
PROVIDERS: Admitting Provider Family Medicine; PCP Family Medicine; Visit Provider Family Medicine
PROC: 0UB70ZZ Excision of Bilateral Fallopian Tubes, Open Approach (ICD-10-PCS; CPT 58605; principal; 2021-06-23 07:15)
DX: O80 Encounter for full-term uncomplicated delivery (principal); Z37.0 Single live birth; Z3A.37 37 weeks gestation of pregnancy; Z87.891 Personal history of nicotine dependence; Z30.2 Encounter for sterilization
CPT/HCPCS: 12345; 36415; 51702; 59025; 59409; 80306; 83986; 85025; 85027; 87635; 88302; 96374; 98960; 99211; J0330; J2405; J2704; J2710; J2795; J3010; J3490; J7030

== ENCOUNTER → 2021-08-04 11:37 | Outpatient (BNVA) | payer MEDICAID, SELFPAY | PROVIDERS: PCP Family Medicine; Visit Provider Nurse Practitioner | DX: F43.12 Post-traumatic stress disorder, chronic (principal); F31.81 Bipolar II disorder; F17.290 Nicotine dependence, other tobacco product, uncomplicated | CPT/HCPCS: 99215 ==

== ENCOUNTER → 2021-09-28 09:41 | Outpatient (BNVA) | payer OTHER, MEDICAID, SELFPAY | PROVIDERS: PCP Family Medicine; Visit Provider Nurse Practitioner | DX: F31.81 Bipolar II disorder (principal); F43.12 Post-traumatic stress disorder, chronic; F17.290 Nicotine dependence, other tobacco product, uncomplicated | CPT/HCPCS: 99214 ==

== ENCOUNTER → 2021-11-25 13:47 | Outpatient (BNVA) | payer OTHER, MEDICAID, SELFPAY | PROVIDERS: PCP Family Medicine; Visit Provider Nurse Practitioner | DX: F31.81 Bipolar II disorder (principal); F43.12 Post-traumatic stress disorder, chronic; F17.290 Nicotine dependence, other tobacco product, uncomplicated | CPT/HCPCS: 99214 ==

== ENCOUNTER → 2021-12-23 08:53 | Outpatient (BNVA) | payer OTHER, MEDICAID, SELFPAY | PROVIDERS: PCP Family Medicine; Visit Provider Nurse Practitioner | DX: F31.81 Bipolar II disorder (principal); F43.12 Post-traumatic stress disorder, chronic; F17.290 Nicotine dependence, other tobacco product, uncomplicated | CPT/HCPCS: 99214 ==

== ENCOUNTER → 2022-02-03 11:26 | Outpatient (BNVA) | payer MEDICAID, SELFPAY | PROVIDERS: PCP Family Medicine; Visit Provider Nurse Practitioner | DX: M79.605 Pain in left leg (principal); M54.50 Low back pain, unspecified; Z12.4 Encounter for screening for malignant neoplasm of cervix | CPT/HCPCS: 88175 ==

== ENCOUNTER → 2022-10-04 09:34 | Outpatient (BNVA) | payer OTHER, SELFPAY | PROVIDERS: PCP Family Medicine; Visit Provider Nurse Practitioner | DX: Z79.899 Other long term (current) drug therapy (principal) | CPT/HCPCS: 80061; 83036 ==

== ENCOUNTER 2023-01-10 09:30 | Emergency (ER) | payer OTHER, MEDICAID, SELFPAY ==
[2023-01-10] VITALS (7 sets, daily range): BP systolic 108–155; BP diastolic 74–131; PULSE 47–78; RESP 12–19; TEMP 36.8; O2SAT 96–100; BMI 39.2
--- NOTE | 2023-01-10 09:36 | ECG_ITS ---
[facility] Test Date: 2023-01-10 Pat Name: Davin Boone Department: Room: Gender: Female Briquetter Operator: : 1990 Requested By: Campos Connelly Order Number: [id number] Niurka MD: Anjali Humphries M.D. Measurements Intervals [place] Rate: 70 P: 10 ND: 192 QRS: 17 QRSD: 85 T: 15 QT: 359 QTc: 388 Interpretive Statements SINUS RHYTHM Compared to ECG 07/04/2019 21:46:20 Sinus arrhythmia no longer present Myocardial infarct finding no longer present Electronically Signed On 01-10-2023 9:50:50 CDT by Anjali Humphries M.D. [id number]
--- NOTE | 2023-01-10 09:39 | W.ED.CHESTPA ---
HPI - Chest Pain General: Chief Complaint: Chest Pain Stated Complaint: chest pain Time Seen by Provider: 01/10/23 09:30 Source: patient Mode of arrival: ambulatory Limitations: no limitations History of Present Illness: 32-year-old female who states that states she had sudden onset of right-sided chest pain that was sharp in nature 15 minutes prior to arrival. She states for like a very sharp pain she rates an 8 out of 10 she denies any worsening proving factors denies any cough or dyspnea. PFSH ED PFSH: Medical History Bipolar 2 disorder Endometriosis Nicotine dependence, other tobacco product, uncomplicated Obesity, Class II, BMI 35-39.9 On combination antipsychotic drug therapy On combination antipsychotic drug therapy Post-traumatic stress disorder, chronic Psychiatric care Surgical History H/O hand surgery Hx of cholecystectomy Family History Other CAD (coronary artery disease) Cancer Chronic kidney disease (CKD) Diabetes Hypertension Denies family history of Anesthesia complication Bleeding disorder Stroke Social History Smoking and tobacco status: current every day smoker (vape) smokeless tobacco Second hand smoke exposure: No Smoking risk assessment/counseling performed?: Yes Alcohol intake: unknown Desire information about alcohol rehabilitation?: No Counseling given: No Substance/Drug Use: unknown Desire information about substance/drug rehabilitation?: No Counseling given: No Adopted: Yes Caregiver/support person: No Lives independently: Yes Household members: spouse and children Housing: House Marital status: Number of children: 3 service: No Do you think of yourself as: Straight/Heterosexual Current gender identity: Female Course Vital Signs: Vital signs: Vital Signs Temperature 98.2 F 01/10/23 09:34 Pulse Rate 47 L 01/10/23 12:15 Respiratory Rate 15 01/10/23 12:15 Blood Pressure 121/74 01/10/23 12:15 Pulse Oximetry 98 01/10/23 12:15 Oxygen Delivery Me thod Room Air 01/10/23 10:06 MDM - Chest Pain Medical Decision Making Patient presents here with chest pain atypical in nature initial repeat troponins are normal D-dimer is negative as well likely a pleuritic pain she is stable for discharge she is to follow-up with PCP and return if worsening. Medical Records I reviewed the patient's medical records. Lab Data I reviewed the patient's lab results. 01/10/23 09:58 01/10/23 09:58 Radiology Impressions Chest X-Ray 01/10/23 09:51 IMPRESSION: No acute chest abnormality. Laboratory Results WBC 8.5 10^3/uL (4.0-10.0) 01/10/23 09:58 RBC 5.33 10^6/uL (4.1-5.3) H 01/10/23 09:58 Hgb 14.2 g/dL (11.5-15.3) 01/10/23 09:58 Hct 44.6 % (37.0-47.0) 01/10/23 09:58 MCV 83.7 fl (81-99) 01/10/23 09:58 MCH 26.6 pg (28.0-34.0) L 01/10/23 09:58 MCHC 31.8 g/dL (30.0-36.0) 01/10/23 09:58 RDW 13.8 % (12.1-15.1) 01/10/23 09:58 Plt Count 229 10^3/cmm (130-400) 01/10/23 09:58 MPV 10.0 fL (7.4-10.4) 01/10/23 09:58 Neut % (Auto) 70.6 % 01/10/23 09:58 Lymph % (Auto) 23.1 % 01/10/23 09:58 [place] % (Auto) 4.5 % 01/10/23 09:58 Eos % (Auto) 1.5 % 01/10/23 09:58 Baso % (Auto) 0.2 % 01/10/23 09:58 Neut # (Auto) 5.97 10^3/uL (1.8-7.7) 01/10/23 09:58 Lymph # (Auto) 2.0 10^3/uL (0.8-4.8) 01/10/23 09:58 [place] # (Auto) 0.4 10^3/uL (0.2-0.9) 01/10/23 09:58 Eos # (Auto) 0.1 10^3/uL (0.0-0.8) 01/10/23 09:58 Baso # (Auto) 0.0 10^3/uL (0.0-0.1) 01/10/23 09:58 Nucleated RBC % (auto) 0 % 01/10/23 09:58 Nucleated RBCs # 0.0 /100WBC 01/10/23 09:58 D-Dimer <= 0.27 ug/mIFEU (0-0.59) 01/10/23 09:58 Sodium 138 mmol/L (136-145) 01/10/23 09:58 Potassium 3.9 mmol/L (3.5-5.1) 01/10/23 09:58 Chloride 104 mmol/L (98-107) 01/10/23 09:58 Carbon Dioxide 24 mmol/L (22-29) 01/10/23 09:58 Anion Gap 13.9 (5-19) 01/10/23 09:58 BUN 8 mg/dL (6-20) 01/10/23 09:58 Creatinine 0.6 mg/dL (0.5-0.9) 01/10/23 09:58 GFR Calculation 116.6 mL/min (90-130) 01/10/23 09:58 Glucose 100 mg/dL (65-115) 01/10/23 09:58 Calculated Osmolality 284 mOsm/kg (285-295) L 01/10/23 09:58 Calcium 9.2 mg/dL (8.5-10.5) 01/10/23 09:58 Total Bilirubin 0.2 mg/dL (0.15-1.2) 01/10/23 09:58 AST 9 U/L (0-32) 01/10/23 09:58 ALT 8 U/L (0-33) 01/10/23 09:58 Alkaline Phosphatase 77 U/L (35-105) 01/10/23 09:58 Troponin T Baseline 6 ng/L (0-10) 01/10/23 09:58 Troponin T 120 Minute 6.00 ng/L (0-10) 01/10/23 11:47 Delta Troponin T 0 ABS# (0-10) 01/10/23 11:47 Total Protein 6.8 g/dL (6.6-8.7) 01/10/23 09:58 Albumin 4.2 g/dL (3.5-5.2) 01/10/23 09:58 Globulin 2.6 g/dL (1.3-4.6) 01/10/23 09:58 EKG Data EKG 1: I personally reviewed and interpreted this EKG as follows: EKG interpretation date: 01/10/23 EKG interpretation time: 09:38 Interpretation: nsr hr 70 no stor t wave abnormalities qr 85 qtc 379 EKG 2: I personally reviewed and interpreted this EKG as follows: EKG interpretation date: 01/10/23 EKG interpretation time: 11:57 Interpretation: sinus karin hr [address] or t wave abnormalities qrs 82 qtc 355 Discharge Plan Discharge Patient Disposition: Home Clinical Impression: Chest pain Condition: Stable Prescriptions: New hydrocodone-acetaminophen 5-325 mg tablet 1 tab PO Q6H PRN (Reason: pain) Qty: 14 0RF No Action topiramate [Topamax] 25 mg tablet 25 mg PO BID Qty: 60 0RF aripiprazole [Abilify] 10 mg tablet 10 mg PO DAILY Qty: 30 2RF Discharge Orders: Discharge ED (Routine); Ordered 01/10/23 Ordered By: Campos Connelly Referrals: Milton Mcintyre MD [Primary Care Provider] - 1-3 days Discharge Diet: Advance as tolerated Discharge Activity: Resume usual activity Patient Instructions: Chest Pain (ED) Coding Level of Care Code ED Business Systems Architect for Mo Mota
--- NOTE | 2023-01-10 09:51 | XR_ITS ---
WS: [id number] XR chest 1V portable [id number] REASON FOR EXAM: cp FINDINGS: Chest is unchanged compared to 07/04/2019. The heart and mediastinum are within normal limits. No active pulmonary parenchymal or pleural disease is identified. Bony thorax is intact without significant abnormality. XR/XR chest 1V portable [id number] IMPRESSION: No acute chest abnormality.
[2023-01-10] MEDS: ondansetron 2 mg/ML SDV 2 mL 4 MG IVP (09:56)
[2023-01-10] MEDS: morphine 4 mg/mL SDV 1 mL IVP (09:56)
[2023-01-10 10:09] LABS: Basophils % 0.2 %; Eosinophils # 0.1 10^3/uL (0.0-0.8); Eosinophils % 1.5 %; Hematocrit 44.6 % (37.0-47.0); Hemoglobin 14.2 g/dL (11.5-15.3); Lymphocytes % 23.1 %; Mean Corpuscular HGB Conc 31.8 g/dL (30.0-36.0); Mean Corpuscular Hemoglobin 26.6 pg (28.0-34.0); Mean Corpuscular Volume 83.7 fl (81-99); Monocytes # 0.4 10^3/uL (0.2-0.9); Monocytes % 4.5 %; Neutrophils # 5.97 10^3/uL (1.8-7.7); Neutrophils % 70.6 %; Nucleated Red Blood Cells % 0 %; Platelet Count 229 10^3/cmm (130-400); Red Blood Count 5.33 10^6/uL (4.1-5.3); Red Cell Distribution Width 13.8 % (12.1-15.1); White Blood Count 8.5 10^3/uL (4.0-10.0)
[2023-01-10 10:28] LABS: D Dimer <= 0.27 ug/mIFEU (0-0.59)
[2023-01-10 10:29] LABS: Alanine Aminotransferase 8 U/L (0-33); Albumin Level 4.2 g/dL (3.5-5.2); Alkaline Phosphatase 77 U/L (35-105); Anion Gap 13.9 (5-19); Aspartate Amino Transferase 9 U/L (0-32); Blood Urea Nitrogen 8 mg/dL (6-20); Calcium 9.2 mg/dL (8.5-10.5); Carbon Dioxide 24 mmol/L (22-29); Chloride 104 mmol/L (98-107); Globulin 2.6 g/dL (1.3-4.6); Glomerular Filtration Rate 116.6 mL/min (90-130); Glucose 100 mg/dL (65-115); Osmolality Calculated 284 mOsm/kg (285-295); Potassium 3.9 mmol/L (3.5-5.1); Sodium 138 mmol/L (136-145); Total Bilirubin 0.2 mg/dL (0.15-1.2); Total Protein 6.8 g/dL (6.6-8.7)
[2023-01-10 10:30] LABS: Troponin(5th) Baseline 6 ng/L (0-10)
[2023-01-10] MEDS: HYDROcodone-acetaminophen 5-325 mg Tablet 1 TAB PO (11:01)
--- NOTE | 2023-01-10 11:37 | ECG_ITS ---
[facility] Test Date: 2023-01-10 Pat Name: Davin Boone Department: Room: Gender: Female Residential Field Manager: : 1990 Requested By: Campos Connelly Order Number: [id number] Niurka MD: Anjali Humphries M.D. Measurements Intervals [place] Rate: 47 P: 1 MO: 219 QRS: 20 QRSD: 82 T: 29 QT: 394 QTc: 349 Interpretive Statements SINUS BRADYCARDIA WITH SINUS ARRHYTHMIA WITH FIRST DEGREE AV BLOCK MODERATE ST DEPRESSION [0.05+ mV ST DEPRESSION] Compared to ECG 01/10/2023 09:38:22 First degree AV block now present ST (T wave) deviation now present Sinus rhythm no longer present Electronically Signed On 01-10-2023 12:36:03 CDT by Anjali Humphries M.D. [id number]
[2023-01-10] MEDS: LORazepam 2 mg/mL INJ 1 mL 1 MG IVP (11:38)
[2023-01-10 12:22] LABS: Troponin 5 2HR Delta 0 ABS# (0-10)
--- NOTE | 2023-01-10 12:25 | PC.NURSE ---
PT PLACED ON CONTINUOS NIBP, SPO2, AND CM
== END 2023-01-10 12:36 | disposition home or self-care (01) ==
PROVIDERS: Emergency Provider Emergency Medicine; PCP Family Medicine
DX: R07.9 Chest pain, unspecified (principal); F17.290 Nicotine dependence, other tobacco product, uncomplicated
CPT/HCPCS: 36415; 71045; 80053; 84484; 85025; 85378; 93005; 96374; 96375; 99285; J2060; J2270; J2405

== ENCOUNTER → 2023-06-14 15:29 | Outpatient (BNVA) | payer MEDICAID, SELFPAY | PROVIDERS: PCP Family Medicine; Visit Provider Nurse Practitioner | DX: Z20.822 Contact with and (suspected) exposure to COVID-19 (principal) | CPT/HCPCS: 87426 ==

== ENCOUNTER → 2023-08-22 15:10 | Outpatient (BNVA) | payer MEDICAID, SELFPAY | PROVIDERS: PCP Family Medicine; Visit Provider Nurse Practitioner | DX: R39.9 Unspecified symptoms and signs involving the genitourinary system (principal); N12 Tubulo-interstitial nephritis, not specified as acute or chronic | CPT/HCPCS: 81000 ==

== ENCOUNTER → 2023-09-17 11:07 | Outpatient (BNVA) | payer MEDICAID, SELFPAY | PROVIDERS: PCP Family Medicine; Visit Provider Nurse Practitioner | DX: Z13.6 Encounter for screening for cardiovascular disorders (principal); F41.8 Other specified anxiety disorders | CPT/HCPCS: 80053; 80061; 84443 ==

== ENCOUNTER 2023-10-26 07:46 | Outpatient (CLI) | payer MEDICAID, SELFPAY ==
--- NOTE | 2023-10-26 08:00 | MR_ITS ---
WS: [id number] MRI BRAIN WITHOUT CONTRAST HISTORY: H53.9 - Unspecified visual disturbance COMPARISON: None available. TECHNIQUE: Diffusion imaging, multiplanar T1, T2 and FLAIR imaging obtained. No evidence for acute infarct or hemorrhage. Ferrell-white matter differentiation is normal. No remote or acute infarcts are volume loss. Ventricles and extra-axial spaces are normal. No inferior displacement of cerebellar tonsils. The sella turcica and pituitary gland are unremarkabl e. Dural venous sinuses and tetlin of Bruno demonstrate no abnormality on this unenhanced studies. Paranasal sinuses: Clear. Mastoid air cells: Normal. Calvarium and scalp: Intact. IMPRESSION: 1. Unremarkable noncontrast MRI brain.
== END 2023-10-26 07:47 | disposition home or self-care (01) ==
LOC: RAD 07:46
PROVIDERS: PCP Family Medicine; Visit Provider Nurse Practitioner
DX: H53.9 Unspecified visual disturbance (principal); R51.9 Headache, unspecified
CPT/HCPCS: 70551

== ENCOUNTER 2024-02-07 12:50 | Outpatient (CLI) | payer MEDICAID, SELFPAY ==
--- NOTE | 2024-02-07 13:00 | US_ITS ---
WS: [id number] ULTRASOUND SOFT TISSUES RIGHT axilla HISTORY: N63.10 - Unspecified lump in the right breast, unspecifie... COMPARISON: None available. TECHNIQUE: 2-D and color Doppler imaging is submitted. Ultrasound is directed in the RIGHT axilla where the patient feels a palpable abnormality. There are a few small benign-appearing lymph nodes. No mass. No pathological lymph node. US/US soft tissue/extremity [id number] IMPRESSION: Normal-appearing lymph nodes in the RIGHT axilla.
== END 2024-02-07 12:51 | disposition home or self-care (01) ==
LOC: RAD 12:51
PROVIDERS: PCP Family Medicine; Visit Provider Nurse Practitioner Family
DX: N63.10 Unspecified lump in the right breast, unspecified quadrant (principal); N64.4 Mastodynia; M79.629 Pain in unspecified upper arm; R22.30 Localized swelling, mass and lump, unspecified upper limb
CPT/HCPCS: 76882

== ENCOUNTER 2024-03-03 09:39 | Outpatient (CLI) | payer MEDICAID, SELFPAY ==
--- NOTE | 2024-03-03 10:30 | MM_ITS ---
WS: [id number] DIAGNOSTIC BILATERAL DIGITAL BREAST TOMOSYNTHESIS MAMMOGRAPHY WITH CAD RIGHT breast ultrasound, limited HISTORY: N63.10 - Unspecified lump in the right breast, unspecifie... COMPARISON: None available. TECHNIQUE: Bilateral craniocaudad, mediolateral oblique, and mediolateral views are submitted with to mosynthesis and SM. RIGHT CC and MLO spot compression. Computer aided detection utilized. Breast composition: There are scattered areas of fibroglandular density. Marker is placed along the u pper outer quadrant of the RIGHT breast at the site of the palpable abnormality. There is no underlyi ng mass or distortion. There are a few benign calcifications in each breast. RIGHT breast ultrasound, limited. Ultrasound directed to the upper outer quadrant at the site of the palpable abnormality. There is no underlying mass. No shadowing. MM/[place] [id number] IMPRESSION: BI-RADS: 2-Benign FOLLOW UP: Age 41 No mammogram or ultrasound abnormality RIGHT breast at the site of concern.
--- NOTE | 2024-03-03 11:00 | US_ITS ---
WS: [id number] DIAGNOSTIC BILATERAL DIGITAL BREAST TOMOSYNTHESIS MAMMOGRAPHY WITH CAD RIGHT breast ultrasound, limited HISTORY: N63.10 - Unspecified lump in the right breast, unspecifie... COMPARISON: None available. TECHNIQUE: Bilateral craniocaudad, mediolateral oblique, and mediolateral views are submitted with to mosynthesis and SM. RIGHT CC and MLO spot compression. Computer aided detection utilized. Breast composition: There are scattered areas of fibroglandular density. Marker is placed along the u pper outer quadrant of the RIGHT breast at the site of the palpable abnormality. There is no underlyi ng mass or distortion. There are a few benign calcifications in each breast. RIGHT breast ultrasound, limited. Ultrasound directed to the upper outer quadrant at the site of the palpable abnormality. There is no underlying mass. No shadowing. US/US breast RT limited* [id number] IMPRESSION: BI-RADS: 2-Benign FOLLOW UP: Age 41 No mammogram or ultrasound abnormality RIGHT breast at the site of concern.
== END 2024-03-03 09:40 | disposition home or self-care (01) ==
LOC: RAD 09:40
PROVIDERS: PCP Family Medicine; Visit Provider Nurse Practitioner Family
DX: N63.10 Unspecified lump in the right breast, unspecified quadrant (principal); N64.4 Mastodynia; R92.323 Mammographic fibroglandular density, bilateral breasts; R92.1 Mammographic calcification found on diagnostic imaging of breast
CPT/HCPCS: 76642; 77062; G0279

== ENCOUNTER 2024-07-20 10:45 | Emergency (ER) | payer MEDICAID, SELFPAY ==
[2024-07-20 11:35] VITALS: BP 121/77; PULSE 65; RESP 16; TEMP 36.8; O2SAT 99
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
[2024-07-20] MEDS: tetanus-dipt-pertussis 0.5 mL SDV IM (12:40)
== END 2024-07-20 12:49 | disposition home or self-care (01) ==
PROVIDERS: Emergency Provider Emergency Medicine; PCP Family Medicine
DX: S61.451A Open bite of right hand, initial encounter (principal); W50.3XXA Accidental bite by another person, initial encounter; F17.290 Nicotine dependence, other tobacco product, uncomplicated
CPT/HCPCS: 73130; 90471; 90715; 99283

== ENCOUNTER → 2024-09-30 13:15 | Outpatient (BNVA) | payer MEDICAID, SELFPAY | PROVIDERS: PCP Family Medicine; Visit Provider Nurse Practitioner | DX: L98.9 Disorder of the skin and subcutaneous tissue, unspecified (principal) | CPT/HCPCS: 88305 ==